=== PATIENT | male | born 1970 | race Caucasian/White ===

== ENCOUNTER 2017-07-13 13:46 | Emergency (ER) | payer SELFPAY ==
[~2017-07-13] VITALS: Ht 167.6 cm; Wt 129.3 kg
[2017-07-13] MEDS ORDERED: IBUP600 PO (14:46)
[2017-07-13] MEDS ORDERED: Norco 5-325 Ta1 EACH PO (14:46)
== END 2017-07-13 14:52 | disposition home or self-care (01) ==
LOC: ER 13:46
DX: M25.511 Pain in right shoulder (principal); E11.9 Type 2 diabetes mellitus without complications; I10 Essential (primary) hypertension; E78.5 Hyperlipidemia, unspecified; E03.9 Hypothyroidism, unspecified; F17.200 Nicotine dependence, unspecified, uncomplicated
CPT/HCPCS: 73030; 99283

== ENCOUNTER 2018-06-21 13:16 | Emergency (ER) | payer SELFPAY ==
[~2018-06-21] VITALS: Ht 165.1 cm; Wt 117.9 kg
[~2018-06-21 13:16] MED LIST: IBUP600 PO; Norco 5-325 Ta1 EACH PO
[2018-06-21] MEDS ORDERED: KETO10 PO (15:00)
[2018-06-21] MEDS ORDERED: HYDR1TAB94 PO (15:00)
[2018-06-21] MEDS ORDERED: CRUTCH4 XX (15:01)
== END 2018-06-21 15:21 | disposition home or self-care (01) ==
LOC: ER 13:16
DX: S93.401A Sprain of unspecified ligament of right ankle, initial encounter (principal); W01.0XXA Fall on same level from slipping, tripping and stumbling without subsequent striking against object, initial encounter; Z79.899 Other long term (current) drug therapy; E11.9 Type 2 diabetes mellitus without complications; I10 Essential (primary) hypertension; E78.5 Hyperlipidemia, unspecified; E03.9 Hypothyroidism, unspecified; Z87.891 Personal history of nicotine dependence
CPT/HCPCS: 29515; 73562-RT; 73610; 73630; 99283-25

== ENCOUNTER 2020-11-12 12:14 | Emergency (ER) | payer OTHER ==
[~2020-11-12] VITALS: Ht 167.6 cm; Wt 127.0 kg
[~2020-11-12 12:14] MED LIST changes: +CRUTCH4 XX; +HYDR1TAB94 PO; +KETO10 PO
[2020-11-12 13:08] LABS: BASOPHILS ABSOLUTE AUTO 0.02 K/mm3 (0.00-0.23); BASOPHILS PERCENT AUTO 0 % (0-2); EOSINOPHILS PERCENT AUTO 0 % (0-6); Hematocrit 45.1 % (37.0-53.0); IMMATURE GRAN ABSOLUTE AUTO 0.01 K/mm3 (0.00-0.10); IMMATURE GRAN PERCENT AUTO 0 % (0-1); LYMPHOCYTES ABSOLUTE AUTO 1.14 K/mm3 (0.84-5.20); LYMPHOCYTES PERCENT AUTO 17 % (21-46); MONOCYTES ABSOLUTE AUTO 0.21 K/mm3 (0.16-1.47); MONOCYTES PERCENT AUTO 3 % (4-13); Mean Corpuscular HGB 29.4 pg (26.0-34.0); Mean Corpuscular HGB Conc 33.3 g/dL (31.5-36.5); Mean Corpuscular Volume 88 fL (80-100); Mean Platelet Volume 10.5 fL (9.1-12.4); NEUTROPHILS ABSOLUTE AUTO 5.43 K/mm3 (1.96-9.15); NEUTROPHILS PERCENT AUTO 80 % (41-73); Platelet Count 168 K/mm3 (150-400); RDW Coefficient Variation 13.9 % (11.7-14.2); RDW Standard Deviation 45.2 fL (35.1-46.3); Red Blood Cell Count 5.11 M/mm3 (4.30-5.90); White Blood Cell Count 6.81 K/mm3 (4.00-11.30)
[2020-11-12 13:37] LABS: Alanine Aminotransfer (ALT/SGP 66 U/L (12-78); Albumin, Blood 3.2 g/dL (3.4-5.0); Albumin/Globulin Ratio 0.6 (0.8-1.8); Alk Phos 65 U/L (50-136); Anion Gap 8 mmol/L (6-16); Aspartate Aminotrans (AST/SGOT 62 U/L (12-37); Bilirubin, Total 0.3 mg/dL (0.1-1.0); Blood Urea Nitrogen 13 mg/dL (8-24); Bun/Creatinine Ratio 16.5 (12.0-20.0); CO2, Blood 24 mmol/L (21-32); Calcium, Blood 8.7 mg/dL (8.5-10.1); Chloride, Blood 99 mmol/L (98-108); Creatinine, Blood 0.79 mg/dL (0.60-1.20); Globulin, Blood 5.4 g/dL (2.2-4.0); Glomerular Filtration Rate >60 (60-); Glucose, Blood 267 mg/dL (70-99); Potassium, Blood 3.8 mmol/L (3.5-5.5); Sodium, Blood 131 mmol/L (136-145); Total Protein, Blood 8.6 g/dL (6.4-8.2); Troponin I <0.015 ng/mL (0.000-0.040)
== END 2020-11-12 14:30 | disposition home or self-care (01) ==
LOC: ER 12:14
PROVIDERS: Physician Assistant
DX: U07.1 COVID-19 (principal); E11.9 Type 2 diabetes mellitus without complications; I10 Essential (primary) hypertension; E78.5 Hyperlipidemia, unspecified; E03.9 Hypothyroidism, unspecified; Z87.891 Personal history of nicotine dependence
CPT/HCPCS: 36415; 71045; 80053; 83690; 83880; 84443; 84484; 85025; 93005; 93010; 96374; 96375; 99284-25; J1885; J2405; J7030

== ENCOUNTER 2020-11-15 18:48 | Inpatient (IN) | payer OTHER ==
[~2020-11-15] VITALS: Ht 167.6 cm; Wt 119.2 kg
[2020-11-15] MEDS ORDERED: ALKA-SELTZER P1 EA19 PO (19:22)
[2020-11-15 19:24] LABS: BASOPHILS ABSOLUTE AUTO 0.02 K/mm3 (0.00-0.23); BASOPHILS PERCENT AUTO 0 % (0-2); EOSINOPHILS PERCENT AUTO 0 % (0-6); Hematocrit 40.3 % (37.0-53.0); Hemoglobin 13.6 g/dL (13.5-17.5); IMMATURE GRAN ABSOLUTE AUTO 0.09 K/mm3 (0.00-0.10); IMMATURE GRAN PERCENT AUTO 1 % (0-1); LYMPHOCYTES ABSOLUTE AUTO 1.15 K/mm3 (0.84-5.20); LYMPHOCYTES PERCENT AUTO 10 % (21-46); MONOCYTES ABSOLUTE AUTO 0.21 K/mm3 (0.16-1.47); MONOCYTES PERCENT AUTO 2 % (4-13); Mean Corpuscular HGB 29.1 pg (26.0-34.0); Mean Corpuscular HGB Conc 33.7 g/dL (31.5-36.5); Mean Corpuscular Volume 86 fL (80-100); Mean Platelet Volume 10.3 fL (9.1-12.4); NEUTROPHILS ABSOLUTE AUTO 10.21 K/mm3 (1.96-9.15); NEUTROPHILS PERCENT AUTO 87 % (41-73); Platelet Count 316 K/mm3 (150-400); RDW Coefficient Variation 13.5 % (11.7-14.2); RDW Standard Deviation 42.5 fL (35.1-46.3); Red Blood Cell Count 4.68 M/mm3 (4.30-5.90); White Blood Cell Count 11.68 K/mm3 (4.00-11.30)
[2020-11-15 19:42] LABS: Alanine Aminotransfer (ALT/SGP 43 U/L (12-78); Albumin, Blood 2.4 g/dL (3.4-5.0); Albumin/Globulin Ratio 0.4 (0.8-1.8); Alk Phos 58 U/L (50-136); Anion Gap 6 mmol/L (6-16); Aspartate Aminotrans (AST/SGOT 43 U/L (12-37); Bilirubin, Total 0.3 mg/dL (0.1-1.0); Blood Urea Nitrogen 17 mg/dL (8-24); Bun/Creatinine Ratio 23.9 (12.0-20.0); CO2, Blood 31 mmol/L (21-32); Calcium, Blood 8.3 mg/dL (8.5-10.1); Chloride, Blood 97 mmol/L (98-108); Creatinine, Blood 0.71 mg/dL (0.60-1.20); Free Thyroxine 0.47 ng/dL (0.70-1.60); Globulin, Blood 5.5 g/dL (2.2-4.0); Glomerular Filtration Rate >60 (60-); Glucose, Blood 276 mg/dL (70-99); Potassium, Blood 3.9 mmol/L (3.5-5.5); Sodium, Blood 134 mmol/L (136-145); Total Protein, Blood 7.9 g/dL (6.4-8.2)
--- NOTE | 2020-11-15 21:01 | NUR ---
REPORT RECEIVED FROM PRIVATE WATCHMANLINWOOD SANCHEZ.
--- NOTE | 2020-11-15 21:30 | NUR ---
PT ARRIVED IN ICU ON STRETCHER, ON HIFLO N/C. RT SET UP AT 60ML, 60%. PT ABLE TO STAND, TURN, PIVOT TO BED, SOB NOTED WITH ACTIVITY.
--- NOTE | 2020-11-15 21:56 | NUR ---
SATS DECREASED 85%, CALLED RT- INCREASED FI02 TO 70% , 60 L.
--- NOTE | 2020-11-15 22:35 | NUR ---
ASSESS PT ATTEMPT TO GET OOB, TO VOID, ASSISTED ON GETTING UP TO BSC. PT SATS DECREASED TO 60% ON 80% INCREASED HF N/C TO 100%. PT RETURNED TO BED. CALLED RT, SATS 86% ON 100%. SATS RECOVERING SLOWLY. SATS RETURN TO 93% ON 100%. DECREASED FIO2 TO 85%. CONTINUE TO ASSESS PT. PT MADE AWARE HE WILL REMIAN BEDREST DUE TO SATS DECREASING WITH ACTIVITY.
--- NOTE | 2020-11-15 23:07 | NUR ---
PT'S UPDATED ON PT STATUS, DECREASED SATS, ON 60L, 90% HF NC INCREASED BP'S,. PT CONCERNED ABOUT THYROID, O2. WILL UPDATE .
--- NOTE | 2020-11-15 23:51 | NUR ---
PT ATTEMPT TO GET OOB. BED ALARM ON, SET IT OFF. SATS DECREASED, 88%. RT TO ROOM. FLOW INCREASED TO 70L. REMAINS ON 90%. DISCUSSED WITH PT PLACING A MAI TO DECREASE TO WANT TO GET OOB. PT REFUSED. BED ALARM ON. PT RESTING IN BED. BP INCREASED SEE VITALS- MD NOTIFIED.
--- NOTE | 2020-11-16 00:14 | NUR ---
NOTIFIED PT ATTEMPTING TO GET OOB, ATFER ASKED TO STAY IN BED SEVERAL TIMES. ? PT INCREASING CONFUSION. PT ALSO REQUIRING MORE 02, DECREASED SATS WITH ACTIVITY. ABG ORDERED. DISCUSSED MAI-PT REFUSED. PT CONTINUES WITH HTN- NEW ORDERES SEE HAILE. AWARE OF ELEVATED TSH, ORAL SYNTHROID ORDERED SEE CGARFERNY RN AWARE OF PT STATUS.
--- NOTE | 2020-11-16 00:24 | NUR ---
RT IN ROOM FOR ABG.
[2020-11-16 00:33] LABS: PCO2 Arterial 45.8 mmHg (35-45); PO2 Arterial 72.3 mmHg (80-100)
[2020-11-16 03:49] LABS: Anion Gap 6 mmol/L (6-16); Blood Urea Nitrogen 19 mg/dL (8-24); Bun/Creatinine Ratio 24.8 (12.0-20.0); CO2, Blood 32 mmol/L (21-32); Calcium, Blood 8.3 mg/dL (8.5-10.1); Chloride, Blood 94 mmol/L (98-108); Creatinine, Blood 0.77 mg/dL (0.60-1.20); Glomerular Filtration Rate >60 (60-); Glucose, Blood 381 mg/dL (70-99); Sodium, Blood 132 mmol/L (136-145)
--- NOTE | 2020-11-16 04:07 | NUR ---
ASSESS PT CONTINUES ON HF 60L/MIN, 80%, SOB WITH ANY ACTIVITY INCLUDING ASSISTING TURNING IN BED. BP IMPROVED-SEE FLOWSHEET. CONTINUE ASSESSMENT AND CARE.
--- NOTE | 2020-11-16 08:35 | NUR ---
ASSUMED CARE BEDSIDE REPORT FROM GREGOR PALUMBO. PT RESTING IN BED. A&OX 3. PT SPEAKS IN ONE-TWO WORD REPLIES. STATES INCREASED SOB c MINIMAL EXERTION OR SPEECH. WITHDRAWN, FLAT AFFECT. SHALLOW RESP. LUNGS DIMINISHED THROUGHOUT. HIGH FLOW, 70L, 90%. DRY COUGH. PT P/W/D. O2 SATS MID 90'S. NSR, RATE 60'S. BP STABLE. PT REFUSES BREAKFAST D/T SOB. ABLE TO DRINK AND TAKE PO MEDS. O2 SATS DECREASE TO 90% WHEN PT USES URINAL. REFUSES MAI. BED ALARM ON FOR SAFETY. CALL LIGHT IN REACH. WILL CONTINUE TO MONITOR.
--- NOTE | 2020-11-16 11:14 | NUR ---
PRONE O2 SATS TRENDING TO LOW 90'S, HIGH 80'S. ASSISTED PT TO PRONE POSITION. TOLERATED WELL. ABLE TO ROLL c MODERATE ASSISTANCE. O2 SATS INCREASED TO MID 90'S. DENIES OTHER NEEDS.
--- NOTE | 2020-11-16 17:35 | NUR ---
SHIFT SUMMARY PT REMAINS ON AIRVO, 70L/100%. PT ON BIPAP, 14/7/100% FOR SHORT PERIOD OF TIME. NO IMPROVEMENT ON O2 SATS DURING THIS TIME, PLACED BACK ON AIRVO. PRONED FOR APPROX 3 HOURS EARLIER IN SHIFT. WILL ENCOURAGE PRONING AFTER DINNER. LUNGS CONTINUE TO BE DIMINISHED THROUGHOUT. PT HAD ONE COUGHING EPISODE c RUST COLORED SPUTUM. PT SPEAKING IN LONGER SENTANCES THAN THIS AM BUT CONTINUED TO DESAT c ANY ACTIVITY OR SPEECH. O2 SATS DECREASED TO 79% WHEN PT ATTEMPTED TO EAT DINNER. REFUSED BREAKFAST AND LUNCH D/T SOB. DIETARY CONSULT ORDERED. BP STABLE. HR 50-60'S, SR. CHEMBGS 300'S. WILL CONTINUE TO MONITOR UNTIL REPORT TO ONCOMING NURSE.
--- NOTE | 2020-11-16 19:34 | NUR ---
REPORT RECEIVED-CARE ASSUMED. PT IN PRONE POSITION, WATCHING TV, ON HF-NC FI02 100%, 70L.MIN FLOW. PT DESATS WITH ANY MOVEMENT. NO MAI DUE TO PT REFUSAL. VOIDS IN URNIAL, DESATS WITH VOIDING INTO 80'S. PIV X 2, S.L. POWER GLIDE JHON- S.L. CONTINUE ASSESSMENT AND CARE.
--- NOTE | 2020-11-16 20:06 | NUR ---
DECREASED SATS 86%, RT AT ROOM. INCREASED FLOW TO 80L
--- NOTE | 2020-11-16 20:16 | NUR ---
PT CONTINUE SWITH DECREASED SATS-ON 100% HF NC IN PRONE POSITION-INSURANCE CLAIMS ANALYST,RT AWARE. -DR. BULLOCK NOTIFIED. REQUEST PULM CONSULT. DR. THOMAS TO ASSESS PT.
--- NOTE | 2020-11-16 20:45 | NUR ---
DR. BULLOCK AT BEDSIDE. RT TO GIVE BREATHING RX. PT NOW ON BIPAP. CONTINUE CARE.
--- NOTE | 2020-11-16 22:08 | NUR ---
ASSESS PT REMAINS IN PRONE POSITION, PT ABLE TO WOODARD, AND AJUST NEEDED, OFFERED REPOSITION, PT RESTING ON 100% BIPAP, OK WITH POSITION. CONTINUE ASSESSMENT AND CARE. VITALS NOTED ON FLOWSHEET.
--- NOTE | 2020-11-16 23:38 | NUR ---
ASSESS 2315 RT TO ROOM, CHARGE NURSE NOTIFIED. HR JACKI LOW 50'S. SATS 86%. RT ATTEMP HI FLOW 100% 75 L/MIN , THEN BIPAP, DISCUSSED WITH PT TO PRONE FOR DECREASED SATS. PT REFUSED AT THIS TIME. PT BLEW NOSE SEVERAL TIMES WITH CLEAR OUTPUT. DISCUSSED INTUBATION. MD NOTIFIED OF SATS, HR. CHANGED POSITION OF SAT PROBE, NO CHANGE IN SAT. PT BACK ON BIPAP 100% 10/04. HOB ELEVATED. SATS 91%, BUT HR REMAINS 50.
--- NOTE | 2020-11-16 23:48 | NUR ---
DR. BULLOCK AT BEDSIDE.
--- NOTE | 2020-11-17 00:03 | NUR ---
ASSESS BS REMAIN DECREASED T/O, STRONG NON-PRODUCTIVE COUGH. PT CHANGED TO PRONE POSITION. VITALS NOTED IN FLOWSHEET. ON BIPAP 100% 15/10, BUR 15. HR: SB 48-52. STRIP PRINTED AND PLACED IN PAPER CHART. DR. BULLOCK UPDATED ON PT STATUS AT BEDSIDE-NO NEW ORDERS AT THIS TIME. CONTINUE ASSESSMENT AND CARE.
[2020-11-17 03:35] LABS: Hematocrit 37.3 % (37.0-53.0); Hemoglobin 12.4 g/dL (13.5-17.5); Mean Corpuscular HGB 29.2 pg (26.0-34.0); Mean Corpuscular HGB Conc 33.2 g/dL (31.5-36.5); Mean Corpuscular Volume 88 fL (80-100); Mean Platelet Volume 10.3 fL (9.1-12.4); Platelet Count 409 K/mm3 (150-400); RDW Coefficient Variation 13.7 % (11.7-14.2); RDW Standard Deviation 44.4 fL (35.1-46.3); Red Blood Cell Count 4.25 M/mm3 (4.30-5.90); White Blood Cell Count 12.66 K/mm3 (4.00-11.30)
[2020-11-17 03:56] LABS: Alanine Aminotransfer (ALT/SGP 44 U/L (12-78); Albumin, Blood 2.1 g/dL (3.4-5.0); Albumin/Globulin Ratio 0.4 (0.8-1.8); Alk Phos 53 U/L (50-136); Anion Gap 4 mmol/L (6-16); Aspartate Aminotrans (AST/SGOT 26 U/L (12-37); Bilirubin, Total 0.2 mg/dL (0.1-1.0); Blood Urea Nitrogen 30 mg/dL (8-24); Bun/Creatinine Ratio 33.2 (12.0-20.0); CO2, Blood 34 mmol/L (21-32); Calcium, Blood 8.5 mg/dL (8.5-10.1); Chloride, Blood 94 mmol/L (98-108); Globulin, Blood 5.1 g/dL (2.2-4.0); Glomerular Filtration Rate >60 (60-); Glucose, Blood 406 mg/dL (70-99); Potassium, Blood 4.1 mmol/L (3.5-5.5); Sodium, Blood 132 mmol/L (136-145); Total Protein, Blood 7.2 g/dL (6.4-8.2)
--- NOTE | 2020-11-17 04:16 | NUR ---
ASSESS PT REMAINS ON BIPAP IN PRONE POSITION, PT ABLE TO MOVE SELF-ASSIST WITH SOME PILLOW SUPPORT. LABS SENT. PAIN MEDS PER MAR, FOR C/O BACK PAIN. SB RATE 45-50 ON MONITOR. VITALS NOTED. CONTINUE ASSESSMENT AND CARE.
--- NOTE | 2020-11-17 07:50 | NUR ---
Received report from Lacey PALUMBO. Patient supine and just repositions self to supine sitting up. He is now on AirVo 70L/100% and sats 83-90%. He is alert and oriented and is able to communicate his needs. He tolerated PO med with water. He has PowerGlide 18/10 JHON dressing intact and site WNL and is flushed and SL. he also has two IV's LH20ga and Left chest 22ga, vbothe WNL and flushed and SL. He is indepentent with positioning and requires minimal assist with O2 apparatus change. He prones self. He uses urinal appropriately. He dieies any back pain currently.
--- NOTE | 2020-11-17 11:30 | NUR ---
Patient remains on AirVo 70L/100% and sats have been as high as 98% and as low as 70%. He has been very brittle with exertion. Dr Boudreaux has been in room and discussed with him intubation and he has agreed to having it done. Patient stated he spoke with his spouse and updated her. I will call post intubation to give her update. He has 300 ml output of urine via urinal. Repositioned higher in bed and stated help him breathing. he tolerated small amounts of breakfast but mostly liquids this am. Patient denies any current needs.
--- NOTE | 2020-11-17 11:35 | NUR ---
Patient intubated using Propofol, succinylcholine 100 mg, 4mg Ativan and 100 mcg Fentanyl. He was started on 50 mcg/kg/min incresed to 60 and now down to 45 mcg/kg/min. He has 8.0 ET and 26 cm at teeth with vent settings of AC 18, TV 450, PEEP 15, Fio2 100%. Spoke with and gave update. Place OG and clamped as well as 16 Fr. Temp Pearl patent clear yellow urine. Just started NS bolus for hypotention
[2020-11-17 11:45] LABS: PCO2 Arterial 46.2 mmHg (35-45); PO2 Arterial 89.7 mmHg (80-100); pH Blood Arterial 7.48 (7.35-7.45)
--- NOTE | 2020-11-17 13:30 | NUR ---
Took patient to CT of chest per order and he did well. Vent setting changes are AC 18, TV 450, PEEP 15, FiO2 75% and sats >93>. Propofol remaisn at 45 mcg/kg/hr and will start LR at 150 ml/hr after NS bolus is done.
--- NOTE | 2020-11-17 15:33 | NUR ---
Repositioned patient and started LR at 150 ml/hr. He remains at 75% FiO2 and sats 93% and resting well. Going to place PICC line. VSS, See EMR. No changes to Propofol.
--- NOTE | 2020-11-17 18:24 | NUR ---
Placed PICC line in AARON. Started tube feed vital high protien at 25 ml/hr and 30 ml/Q4 water flushes. Changed linen and placed chucks and green sheet for moving patient. Reduced FiO2 to 55% while in room and sats 92%. Repositioned pateint to left side. Vent settings Ac 18, TV 450, PEEP 15, FiO2 55%. Propofol at 45 mcg/kg/min and LR at 150 ml/hr. He has 900 yellow urine output.
--- NOTE | 2020-11-17 19:23 | NUR ---
CARE ASSUMED: REPORT RECEIVED-PT ON VENT A/C 18/TV 450/15/55%. SEDATED ON PROPOFOL INFUSING @ 45.TEMP MAI IN PLACE-DRAINING CL/YELLOW. TF STARTED TODAY CURRENTLY RUNNING @ 25 ML/HR. CONTINUE ASSESSMENT AND CARE.
--- NOTE | 2020-11-18 | NUR ---
ASSESS PT REMAINS ON VENT, NO CHANGES, VITALS STABLE. CONTINUE CARE.
--- NOTE | 2020-11-18 02:04 | NUR ---
WEAN SEDATION ATTEMPT TO WEAN PROPOFOL, FROM 45 TO 35 MCG/KG/MIN. PT BEGAN TO BITE ET-TUBE, WOODARD, COUGHING ON VENT. RETURN PROPOFOL TO 45MCG/KG/MIN. CONTINUE ASSESSMENT AND CARE.
--- NOTE | 2020-11-18 03:03 | NUR ---
RT NOTIFIED-PT 02 SATS 88-89%. BS: REMIAN UNCHANGED-DECREASED BILAT-EQUAL. SXN: SMALL AMTS CLEAR SECREATIONS WITH STRONG COUGH. CONTINUE ASSESSMENT AND CARE.
--- NOTE | 2020-11-18 04:34 | NUR ---
ASSESS PT ATTEMPT TO GET UP, PULLING AT RESTRAINTS, FLAILING HEAD AND WOODARD. INCREASED PROPOFOL TO 55 MCG/KG/MIN. BS REMIAN EQUAL BILAT. SXN: SMALL AMT CLEAR SECREATIONS, STRONG COUGH. SATS 89%, INCREASED FI02 TO 60%. REPOSITION PT. CONTINUE ASSESSMENT AND CARE.
[2020-11-18 05:00] LABS: BASOPHILS ABSOLUTE AUTO 0.02 K/mm3 (0.00-0.23); BASOPHILS PERCENT AUTO 0 % (0-2); EOSINOPHILS PERCENT AUTO 0 % (0-6); Hematocrit 38.9 % (37.0-53.0); Hemoglobin 12.7 g/dL (13.5-17.5); IMMATURE GRAN ABSOLUTE AUTO 0.16 K/mm3 (0.00-0.10); IMMATURE GRAN PERCENT AUTO 1 % (0-1); LYMPHOCYTES ABSOLUTE AUTO 1.03 K/mm3 (0.84-5.20); LYMPHOCYTES PERCENT AUTO 9 % (21-46); MONOCYTES ABSOLUTE AUTO 0.45 K/mm3 (0.16-1.47); MONOCYTES PERCENT AUTO 4 % (4-13); Mean Corpuscular HGB 29.2 pg (26.0-34.0); Mean Corpuscular HGB Conc 32.6 g/dL (31.5-36.5); Mean Corpuscular Volume 89 fL (80-100); Mean Platelet Volume 10.4 fL (9.1-12.4); NEUTROPHILS ABSOLUTE AUTO 9.72 K/mm3 (1.96-9.15); NEUTROPHILS PERCENT AUTO 85 % (41-73); Platelet Count 440 K/mm3 (150-400); RDW Coefficient Variation 13.8 % (11.7-14.2); Red Blood Cell Count 4.35 M/mm3 (4.30-5.90); White Blood Cell Count 11.38 K/mm3 (4.00-11.30)
[2020-11-18 05:14] LABS: PCO2 Arterial 45.9 mmHg (35-45); PO2 Arterial 56.6 mmHg (80-100); pH Blood Arterial 7.47 (7.35-7.45)
[2020-11-18 05:18] LABS: Anion Gap 6 mmol/L (6-16); Blood Urea Nitrogen 36 mg/dL (8-24); CO2, Blood 32 mmol/L (21-32); Calcium, Blood 8.8 mg/dL (8.5-10.1); Chloride, Blood 96 mmol/L (98-108); Creatinine, Blood 1.03 mg/dL (0.60-1.20); Glomerular Filtration Rate >60 (60-); Glucose, Blood 391 mg/dL (70-99); Magnesium, Blood 2.6 mg/dL (1.6-2.4); Phosphorus, Blood 4.2 mg/dL (2.5-4.9); Potassium, Blood 4.1 mmol/L (3.5-5.5); Sodium, Blood 134 mmol/L (136-145)
--- NOTE | 2020-11-18 05:36 | NUR ---
PA02 56.6 ON ABG-T/O NIGHT PT HAS REQUIRED INCREASE IN FIO2 NOW ON 70%. INCREASED TO 80% AFTER ABG-RT AND NARROW FABRIC CALENDERER AWARE AWARE.
--- NOTE | 2020-11-18 06:18 | NUR ---
ASSESS-END OF SHIFT DISCUSSED WITH LAB HEAD-PAO2 RESULTS (SEE ABS)-INCREASED FIO2 TO 100%. VENT SETTINGS: A/C V/C 18/450/15/100%. PROPOFOL @ 50 MCG/KG/MIN, LR @ 150 ML/HR BOTH INFUSING INTO AARON PICC. OG WITH TF @ 25 - NOW INCREASED TO 35 ML/HR - O RISIDUAL. MAI TO DRAIN-YELLOW OUTPUT WITH SEDIMENT NOTED, 350ML OUT OVERNIGHT. CONTINUE ASSESSMENTS AND CARE TILL REPORT OFF TO ONCOMING SHIFT RN.
--- NOTE | 2020-11-18 07:48 | NUR ---
Received report from Lacey Weston. Patient is intubated and sedated. He has 8.0 ET and 24 cm at teeth. Vent settings are AC 17 TV 450, PEEP 15 and have reduced while in room FiO2 65% and sats 96%. He has PowerGlide in JHON dressing intact and site WNL's and is flushed and SL'd. He also has 20ga IV in LH also flushed and SL'd. He has PICC line to AARON dressing intact and site WNL's and is infusing Propofol 50 mcg/kg/min, LR 150 ml/hr. He has OG in place infusing VHP at goal rate of 40 ml/hr and 30 ml/Q4 water flushes and no residuals . Patient has 16Fr temp clayton with clear yellow urine and is afebrile. Oral care, cath care and repositioning done while in room. Med given through OG.
--- NOTE | 2020-11-18 09:45 | NUR ---
Patient is resting and is alert enough to point and make hand jestures to communicate. His Fio2 at 65% and just reduced PEEP to 12. Increased Propofol to 60 mcg/kg/min, LR remains at 150 ml/hr. gave Dr Boudreaux update.
--- NOTE | 2020-11-18 12:08 | NUR ---
Repositioned patient. No changes to vent settings and remains at 18/450/12/65%.LR reduced to 10 ml/hr per Dr Boudreaux and Propofol is at 60 mcg/kg/min. TF remaisn at goal rate of 40 ml of VHP.
--- NOTE | 2020-11-18 13:41 | NUR ---
No significant changes with patient, LR at 10 ml/hr, Propofol 60 mcg/kg/min. Vent settings 16/450/12/60 and sats 94%. Emptied 1200 gren/yellow urine. MAEW. Responds to verbal and painful stimuli. Dr Boudreaux was in room assessing.
--- NOTE | 2020-11-18 17:51 | NUR ---
Patient was repositioned and chucks changed. He has medium loose stool. He put out another 700 green/yellow urine with sediment. Vent settings 18/450.12.65% and sats >90%. Propofol reduced to 50 and LR running at 10 ml/hr. he was alert enough to knod yes and no. Medicated with Fentanyl per MAR. VSS, See EMR. He has moderate secretions in ET when on right side. Changed TF out.
--- NOTE | 2020-11-18 19:00 | NUR ---
ASSUMED CARE ASSUMED CARE OF PATIENT. REMAINS INTUBATED- AC 18, TV 450, PEEP 12, FIO2 60%. SEDATED WITH PROPOFOL AT 50MCG/KG/MIN AT THIS TIME. MOVES ALL EXTREMITIES AND MOVES SELF IN BED. RESTLESS AT TIMES. FOLLOWS SIMPLE COMMANDS TO SQUEEZE HANDS AND WIGGLE TOES. NODS HEAD YES/NO SEEMINGLY APPROPRIATELY. BILATERAL SOFT WRIST RESTRAINTS IN PLACE TO PREVENT SELF-EXTUBATION. MONITOR SHOWS NSR, RATE 60s. BP STABLE. OG WITH VITAL HIGH PROTEIN AT GOAL RATE OF 40CC/HR. MAI PATENT AND DRAINING CLEAR YELLOW URINE. SEE SHIFT ASSESSMENT FOR FULL ASSESSMENT.
[2020-11-19 04:44] LABS: BASOPHILS ABSOLUTE AUTO 0.01 K/mm3 (0.00-0.23); BASOPHILS PERCENT AUTO 0 % (0-2); EOSINOPHILS ABSOLUTE AUTO 0.03 K/mm3 (0.00-0.68); EOSINOPHILS PERCENT AUTO 0 % (0-6); Hematocrit 37.5 % (37.0-53.0); Hemoglobin 12.4 g/dL (13.5-17.5); IMMATURE GRAN ABSOLUTE AUTO 0.22 K/mm3 (0.00-0.10); IMMATURE GRAN PERCENT AUTO 2 % (0-1); LYMPHOCYTES ABSOLUTE AUTO 1.56 K/mm3 (0.84-5.20); LYMPHOCYTES PERCENT AUTO 16 % (21-46); MONOCYTES ABSOLUTE AUTO 0.39 K/mm3 (0.16-1.47); MONOCYTES PERCENT AUTO 4 % (4-13); Mean Corpuscular HGB 29.7 pg (26.0-34.0); Mean Corpuscular HGB Conc 33.1 g/dL (31.5-36.5); Mean Corpuscular Volume 90 fL (80-100); Mean Platelet Volume 10.4 fL (9.1-12.4); NEUTROPHILS ABSOLUTE AUTO 7.56 K/mm3 (1.96-9.15); NEUTROPHILS PERCENT AUTO 77 % (41-73); Platelet Count 404 K/mm3 (150-400); RDW Coefficient Variation 13.6 % (11.7-14.2); RDW Standard Deviation 44.8 fL (35.1-46.3); Red Blood Cell Count 4.18 M/mm3 (4.30-5.90); White Blood Cell Count 9.77 K/mm3 (4.00-11.30)
[2020-11-19 05:03] LABS: Alanine Aminotransfer (ALT/SGP 39 U/L (12-78); Albumin/Globulin Ratio 0.4 (0.8-1.8); Alk Phos 54 U/L (50-136); Anion Gap 5 mmol/L (6-16); Aspartate Aminotrans (AST/SGOT 26 U/L (12-37); Bilirubin, Total 0.3 mg/dL (0.1-1.0); Blood Urea Nitrogen 26 mg/dL (8-24); Bun/Creatinine Ratio 26.3 (12.0-20.0); CO2, Blood 32 mmol/L (21-32); Chloride, Blood 100 mmol/L (98-108); Creatinine, Blood 0.99 mg/dL (0.60-1.20); Globulin, Blood 4.6 g/dL (2.2-4.0); Glomerular Filtration Rate >60 (60-); Glucose, Blood 326 mg/dL (70-99); Potassium, Blood 3.6 mmol/L (3.5-5.5); Sodium, Blood 137 mmol/L (136-145); Total Protein, Blood 6.6 g/dL (6.4-8.2)
--- NOTE | 2020-11-19 06:18 | NUR ---
SHIFT SUMMARY NO ACUTE CHANGES. REMAINS INTUBATED WITH SAME VENT SETTINGS EXCEPT FIO2 NOW 65%. SEDATED WITH PROPOFOL BETWEEN 50-60MCG/KG/MIN- NOW INFUSING AT 60MCG/KG/MIN. ALSO MEDICATED WITH ATIVAN 2MG IV X 4 DOSES AND FENTANYL 50MCG IV X 5 DOSES AN ADJUNCT TO SEDATION. PT INTERMITTENTLY BECOMES AGITATED AND RESTLESS, THROWING LEGS OFF OF SIDE OF BED AND REACHING FOR ETT. BILATERAL SOFT WRIST RESTRAINTS REMAIN IN PLACE. VSS T/O NOC. OG WITH VITAL HIGH PROTEIN AT GOAL RATE OF 40CC/HR. OG RESIDUALS <10CC. MAI PATENT AND DRAINING. AARON PICC PATENT. JHON HDZ GLIDE PATENT. WILL REPORT TO ONCOMING RN WHEN AVAILABLE.
--- NOTE | 2020-11-19 07:15 | NUR ---
Assumed care of pt at 0700. Bedside report received from Sabine PALUMBO. Pt sedated with propofol at 60 mcg/kg/min. Reportedly requires frequent IV push ativan and fentanyl as pt becomes restless and scoots down in bed with intent to reach for ETT. At initial assessment, pt is responsive to painful stimulus. Gag and cough present. Compliant with ventilator. 8.0 cm ETT is 26 cm JOSE. Ventilator settings AC 18/450/12/65%. SpO2 90% or greater. Moderate amount of thin pink sputum aspirated from ETT. Lungs clear t/o on auscultation with diminished bases. TF with feeds and flushes per orders. 0 mL residual measured. BT present in all quadrants. Pearl catheter draining dark yellow/green urine. Catheter secured to bed patent and draining. PICC line and PG present. SR per monitor, BP stable.
--- NOTE | 2020-11-19 08:30 | NUR ---
Pt required IV push ativan and fentanyl as he was chewing on ETT and performing full-body repositioning in bed.
--- NOTE | 2020-11-19 10:30 | NUR ---
Discussed pt's agitation with Dr Boudreaux. Orders given for fentanyl drip.
--- NOTE | 2020-11-19 12:30 | NUR ---
Pt again required IV fentanyl and ativan as he was biting down on ETT and impairing ventilaton. Discussed agitation with Dr Boudreaux. Orders given for precedex drip.
--- NOTE | 2020-11-19 18:14 | NUR ---
SUMMARY Sedation is stable at 50 mcg/kg/min propofol, 0.2 mcg/kg/hr precedex, and 25 mcg/hr fentanyl. Gag and cough present. Responsive to painful stimulus. Sedation interruption performed earlier today, duration 30 minutes, pt follows commands and remained compliant with ventilator. Ventilator settings AC 18/450/12/50%. SpO2 90% or greater. SR per monitor. Tolerating TF well. 0 mL residual measured this shift. Pearl catheter had excellent urine output. Will continue to closely monitor until care handoff and bedside report with oncoming RN.
--- NOTE | 2020-11-19 19:50 | NUR ---
ASSUMED CARE ASSUMED CARE OF PATIENT AT 1900. REMAINS INTUBATED- AC 18, TV 450, PEEP 12, FIO2 50%. SEDATED WITH PROPOFOL AT 50MCG/KG/MIN, PRECEDEX AT 0.2MCG/KG/HR, AND FENTANYL 25MCG/HR AT THIS TIME. APPEARS RESTLESS AND AGITATED AT THIS TIME. MEDICATED WITH ATIVAN 2MG IV. BILATERAL SOFT WRIST RESTRAINTS IN PLACE TO PREVENT SELF-EXTUBATION. NOT FOLLOWING ANY COMMANDS AT THIS TIME. MONITOR SHOWS NSR, RATE 58-60s. BP STABLE. OG WITH VITAL HIGH PROTEIN AT GOAL RATE OF 25CC/HR. MAI PATENT AND DRAINING DARK YELLOW URINE WITH SEDIMENT. JHON PG AND AARON PICC NOTED. SEE SHIFT ASSESSMENT FOR FULL ASSESSMENT.
[2020-11-20 03:44] LABS: BASOPHILS ABSOLUTE AUTO 0.02 K/mm3 (0.00-0.23); BASOPHILS PERCENT AUTO 0 % (0-2); EOSINOPHILS ABSOLUTE AUTO 0.16 K/mm3 (0.00-0.68); EOSINOPHILS PERCENT AUTO 2 % (0-6); Hematocrit 36.5 % (37.0-53.0); Hemoglobin 12.1 g/dL (13.5-17.5); IMMATURE GRAN ABSOLUTE AUTO 0.17 K/mm3 (0.00-0.10); IMMATURE GRAN PERCENT AUTO 2 % (0-1); LYMPHOCYTES ABSOLUTE AUTO 1.88 K/mm3 (0.84-5.20); LYMPHOCYTES PERCENT AUTO 18 % (21-46); MONOCYTES ABSOLUTE AUTO 0.54 K/mm3 (0.16-1.47); MONOCYTES PERCENT AUTO 5 % (4-13); Mean Corpuscular HGB Conc 33.2 g/dL (31.5-36.5); Mean Corpuscular Volume 90 fL (80-100); Mean Platelet Volume 9.8 fL (9.1-12.4); NEUTROPHILS ABSOLUTE AUTO 7.66 K/mm3 (1.96-9.15); NEUTROPHILS PERCENT AUTO 74 % (41-73); Platelet Count 373 K/mm3 (150-400); RDW Coefficient Variation 13.4 % (11.7-14.2); RDW Standard Deviation 44.6 fL (35.1-46.3); Red Blood Cell Count 4.04 M/mm3 (4.30-5.90); White Blood Cell Count 10.43 K/mm3 (4.00-11.30)
[2020-11-20 04:00] LABS: Albumin, Blood 1.9 g/dL (3.4-5.0); Anion Gap 3 mmol/L (6-16); Blood Urea Nitrogen 15 mg/dL (8-24); Bun/Creatinine Ratio 17.4 (12.0-20.0); CO2, Blood 31 mmol/L (21-32); Calcium, Blood 7.7 mg/dL (8.5-10.1); Chloride, Blood 102 mmol/L (98-108); Creatinine, Blood 0.86 mg/dL (0.60-1.20); Glomerular Filtration Rate >60 (60-); Glucose, Blood 275 mg/dL (70-99); Phosphorus, Blood 2.7 mg/dL (2.5-4.9); Sodium, Blood 136 mmol/L (136-145)
--- NOTE | 2020-11-20 06:31 | NUR ---
SHIFT SUMMARY NO ACUTE CHANGES. REMAINS INTUBATED- FIO2 NOW 60%. SEDATED WITH PROPOFOL AT 50MCG/KG/MIN, PRECEDEX AT 0.3MCG/KG/HR, AND FENTANYL AT 25MCG/HR. ALSO MEDICATED WITH ATIVAN 2MG IV X 3 DOSES AN ADJUNCT TO SEDATION. ATTEMPTS TO TITRATE SEDATION DOWN HAVE BEEN UNSUCCESSFUL WITH PT BECOMING INCREASINGLY AGITATED AND RESTLESS AND WITH INCREASED COUGHING NOTED. PT REACHES FOR ETT WHEN RESTRAINTS LOOSENED. BILATERAL SOFT WRIST RESTRAINTS IN PLACE. FOLLOWED SIMPLE COMMANDS WHEN SHORT SEDATION VACATION DONE. MOVES SELF IN BED AT TIMES. OG WITH VITAL HIGH PROTEIN AT GOAL RATE OF 25CC/HR. RESIDUALS WNL. MAI PATENT AND DRAINING TO GRAVITY- YELLOWISH- GREEN URINE WITH SEDIMENT. JHON POWER GLIDE PATENT. AARON PICC LINE PATENT. VSS. WILL REPORT TO ONCOMING RN WHEN AVAILABLE.
--- NOTE | 2020-11-20 07:15 | NUR ---
Assumed care of pt at 0700. Report received from Sabine PALUMBO. Pt sedated with propofol at 50 mcg/kg/min, precedex 0.3 mcg/kg/hr, and fentanyl at 25 mcg/hr. Responsive to painful stimlulus. Gag and cough present. Ventilator settings ACVC 18/450/12/60%. SpO2 90% or greater. Lungs coarse t/o. OG tube with feeds and flushes per orders. 60 mL resiudal measured. Pearl catheter secured to bed, patent and draining dark, yellow urine.
--- NOTE | 2020-11-20 16:00 | NUR ---
Sedation interruption performed with propofol off, precedex at 0.4 mcg/kg/hr, and fentanyl at 25 mcg/hr. Pt's spouse at bedside. Pt able to nod head yes/no to answer questions. Able to follow commands.
--- NOTE | 2020-11-20 18:18 | NUR ---
SUMMARY No acute changes t/o shift. Propofol at 50 mcg/kg/min. Precedex at 0.4 mcg/kg/hr. Fentanyl at 25 mcg/min. Responsive to painful stimulus. Compliant with ventilator. Settings ACVC+ 18/450/12/50%. SpO2 90% or greater. Lungs initially coarse t/o but are now clear t/o. Intially 60 mL residual from OG tube, however on subsequent rechecks, 0 mL residual measured. Excellent urine output. Will continue to closely monitor until care handoff and bedside report with oncoming RN.
--- NOTE | 2020-11-20 20:00 | NUR ---
ASSUMED PT CARE REPORT FROM EMERSON MCMAHAN RN AT 1915, ASSUMED PT CARE. PT INTUBATED AND SEDATED. BILATERAL SOFT WRIST RESTRAINTS SECURE. PT HAS PICC LINE TO [facility], SITE WNL, DRESSING C/D/I. POWER GLIDE TO [facility], SITE WNL, DRESSING C/D/I. PT HAS NS INF @ 10ML/HR, PROPOFOL INF @ 45MCG/KG/MIN (DECREASED FROM 50MCG), PRECEDEX INF @ 0.4MCG/KG/HR, FENTANYL INF @ 25MCG/HR. PT COMFORTABLE. EXT FLOATED ON PILLOWS. OG TUBE SECURE WITH VHP INF @ GOAL, 25ML/HR WITH Q4HR 30ML H20 FLUSH. RESIDUAL AT THIS TIME 20ML, REINSTILLED. ABD SOFT, SOMEWHAT DISTENDED, BOWEL SOUNDS ACTIVE. TEMP MAI DRAINING DARK YELLOW/GREEN URINE. PT LUNG SOUNDS COARSE, FREQUENT COUGH, SPUTUM THICK AND YELLOW. VENT SETTINGS AC 18/450/12/50%, SATS >90%. BP STABLE. HR NSR 60'S. PT CURRENTLY AFEBRILE. SEE FULL SHIFT ASSESSMENT.
[2020-11-21 04:41] LABS: BASOPHILS ABSOLUTE AUTO 0.02 K/mm3 (0.00-0.23); BASOPHILS PERCENT AUTO 0 % (0-2); EOSINOPHILS PERCENT AUTO 2 % (0-6); Hematocrit 36.4 % (37.0-53.0); IMMATURE GRAN ABSOLUTE AUTO 0.19 K/mm3 (0.00-0.10); IMMATURE GRAN PERCENT AUTO 2 % (0-1); LYMPHOCYTES ABSOLUTE AUTO 1.79 K/mm3 (0.84-5.20); LYMPHOCYTES PERCENT AUTO 17 % (21-46); MONOCYTES ABSOLUTE AUTO 0.52 K/mm3 (0.16-1.47); MONOCYTES PERCENT AUTO 5 % (4-13); Mean Corpuscular HGB 29.4 pg (26.0-34.0); Mean Corpuscular Volume 89 fL (80-100); Mean Platelet Volume 10.2 fL (9.1-12.4); NEUTROPHILS ABSOLUTE AUTO 7.93 K/mm3 (1.96-9.15); NEUTROPHILS PERCENT AUTO 74 % (41-73); Platelet Count 343 K/mm3 (150-400); RDW Coefficient Variation 13.5 % (11.7-14.2); RDW Standard Deviation 44.3 fL (35.1-46.3); Red Blood Cell Count 4.08 M/mm3 (4.30-5.90); White Blood Cell Count 10.65 K/mm3 (4.00-11.30)
[2020-11-21 04:55] LABS: Albumin, Blood 1.9 g/dL (3.4-5.0); Anion Gap 3 mmol/L (6-16); Blood Urea Nitrogen 14 mg/dL (8-24); Bun/Creatinine Ratio 21.3 (12.0-20.0); CO2, Blood 29 mmol/L (21-32); Chloride, Blood 103 mmol/L (98-108); Creatinine, Blood 0.66 mg/dL (0.60-1.20); Glomerular Filtration Rate >60 (60-); Glucose, Blood 267 mg/dL (70-99); Phosphorus, Blood 2.2 mg/dL (2.5-4.9); Potassium, Blood 4.1 mmol/L (3.5-5.5); Sodium, Blood 135 mmol/L (136-145)
--- NOTE | 2020-11-21 06:24 | NUR ---
SHIFT SUMMARY PT REMAINS INTUBATED AND SEDATED. ATTEMPTED SEDATION VACATION THIS AM, DID NOT GO WELL. PT BECAME ANXIOUS, UNABLE TO CALM, GAGGING AND CHOKING ON ET TUBE, DENIED PAIN BUT SHOOK HIS HEAD ALL AROUND. PT HAS PICC TO AARON WITH FENTANYL INF @ 25MCG/HR, PROPOFOL INF @ 40MCG/KG/MIN, PRECEDEX INF @ 0.4MCG/KG/HR. POWER GLIDE TO LEFT UPPER ARM, HEP LOCK, SITE WNL. SKIN MOIST AND PALE/PINK. PT SR ON MONITOR, BPS HAVE BEEN REGULAR. PT STILL INTUBATED AND TOLERATING VENT SETTINGS AC 18/450/12/50, SATS >90%. MAI DRAINING. BILATERAL SOFT WRIST RESTARAINTS SECURE. PT HAS TUBE FEEDS INFUSING AT GOAL (25ML/HR), RESIDUALS WNL. WILL REPORT TO ONCOMING SHIFT.
--- NOTE | 2020-11-21 07:15 | NUR ---
Assumed care of pt at 0700. Report received from Barrett PALUMBO. Pt sedated with propofol at 40 mcg/kg/min, precedex 0.4 mcg/kg/hr, fentanyl 25 mcg/min. Responsive to painful stimulus. Moves all extremities. Cough and gag present. Ventilator settings ACVC+ 18/450/12/50%. SpO2 90% or greater. Lungs clear t/o. TF with feed and flushes per orders. 10 mL residual measured. Pearl catheter in place patent and draining.
--- NOTE | 2020-11-21 11:15 | NUR ---
At this time, propofol has been decreased to 35 mcg/kg/hr. Precedex remains at 0.4 mcg/kg/hr. Fentanyl remains at 25 mcg/hr. At this time, pt is responsive to verbal stimlulus. Calm and cooperative. Able to nod head yes/no to answer questions. Nods head "no" when asked if he is in pain. Pt mobile practice lead this RN's hands when instructed to do so. Pt is complaint with ventilator. No coughing or high peak pressures. Pt is not chewing on ETT. Will continue to closely reassess.
--- NOTE | 2020-11-21 14:45 | NUR ---
Propofol back up to 50 mcg/kg/hr along with fentanyl and precedex at same rates because pt was coughing and chewing on ETT to point where in-line suction could not be advanced.
--- NOTE | 2020-11-21 17:40 | NUR ---
SUMMARY At this time, sedation is at 50 mcg/kg/min propofol, 0.2 mcg/kg/hr precedex, and fentanyl 25 mcg/hr. Responsive to painful stimulus. Cough and gag present. PERRL. In bilat wrist restraint to prevent self extubation. Lungs clear t/o. Ventilator settings ACVC+ 18/450/12/50%. SpO2 90% or greater. More secretions from ETT than previous days worked with pt. Dr Palacios notified. Sputum sample sent. OG tube with feeds and flushes per orders, pt tolerating well. Maximum residual measured this shift 10 mL. No BM this shift. Excellent urine output from clayton catheter. Will continue to monitor until care handoff with oncoming RN.
--- NOTE | 2020-11-21 19:53 | NUR ---
ASSUMPTION OF CARE RECEIVED REPORT AT 1900 FROM EMERSON PALUMBO. ASSUMED CARE OF PATIENT. PATIENT SEDATED ON VENTILATOR WITH SETTINGS AC/VC+ 18/450/12/50%, WITH SATS ABOVE 95%. PROPOFOL IS AT 50MCG/KG, PRECEDEX IS AT 0.2MCG/KG, FENTANYL A 25MCG/HR. VITALS STABLE. COPIOUS SECRETIONS SUCTIONED BOTH ORALLY AND VIA ETT. PATIENT AROUSES TO PHYSICAL STIMULI, COUGHS AGAINST VENT AND PULLS AT RESTRAINTS. EASILY CALMS WITH DECREASED STIMULI. WILL REVIEW ORDERS AND TREAT PRESCRIBED.
--- NOTE | 2020-11-22 | NUR ---
REASSESSMENT NO ACUTE CHANGES FROM PREVIOUS ASSESSMENT. PATIENT SPONTANEOUSLY OPENS EYES, FOLLOWS COMMANDS, ATTEMPTS TO REACH TUBE WITH HANDS. CONTINUES WITH COPIOUS SECRETIONS BOTH ORALLY AND VIA ETT, REQUIRING FREQUENT SUCTIONING. TF REMAINS AT 25ML/HR WITH MINIMAL RESIDUALS. SEDATION TITRATIONS REMAINS UNCHANGED. FIO2 DECREASED TO 45% PER RT WITH SATS NOW AT 91-93%. WILL CONTINUE TO MONITOR RESPONSE. REPOSITIONED AND ORAL CARE COMPLETED.
--- NOTE | 2020-11-22 04:00 | NUR ---
REASSESSMENT NO ACUTE CHANGES FROM PREVIOUS ASSESSMENT. SEDATION VACATION PERFORMED, PATIENT ORIENTED, FOLLOWED COMMANDS, EQUAL STRENGTH TO BUE AND BLE. COPIOUS SECRETIONS CONTINUE VIA ORALLY AND ETT. MINIMAL RESIDUALS, TF AT 25ML/HR VIA OG ORDERED. REPOSITIONED, PATIENT HELPED TURN AND PUSHED SELF UP IN BED. FIO2 DECREASED TO 40% WITH SATS AT 94%. WILL CONTINUE TO MONITOR. SEDATION RESTARTED, PATIENT CURRENTLY SEDATED WITH NO S/S OF DISTRESS.
[2020-11-22 04:39] LABS: BASOPHILS ABSOLUTE AUTO 0.02 K/mm3 (0.00-0.23); BASOPHILS PERCENT AUTO 0 % (0-2); EOSINOPHILS ABSOLUTE AUTO 0.14 K/mm3 (0.00-0.68); EOSINOPHILS PERCENT AUTO 1 % (0-6); Hematocrit 36.4 % (37.0-53.0); Hemoglobin 11.9 g/dL (13.5-17.5); IMMATURE GRAN ABSOLUTE AUTO 0.19 K/mm3 (0.00-0.10); IMMATURE GRAN PERCENT AUTO 2 % (0-1); LYMPHOCYTES PERCENT AUTO 20 % (21-46); MONOCYTES ABSOLUTE AUTO 0.54 K/mm3 (0.16-1.47); MONOCYTES PERCENT AUTO 5 % (4-13); Mean Corpuscular HGB 29.1 pg (26.0-34.0); Mean Corpuscular HGB Conc 32.7 g/dL (31.5-36.5); Mean Corpuscular Volume 89 fL (80-100); Mean Platelet Volume 10.3 fL (9.1-12.4); NEUTROPHILS ABSOLUTE AUTO 7.26 K/mm3 (1.96-9.15); NEUTROPHILS PERCENT AUTO 72 % (41-73); Platelet Count 379 K/mm3 (150-400); RDW Coefficient Variation 13.6 % (11.7-14.2); RDW Standard Deviation 44.4 fL (35.1-46.3); Red Blood Cell Count 4.09 M/mm3 (4.30-5.90); White Blood Cell Count 10.15 K/mm3 (4.00-11.30)
[2020-11-22 04:57] LABS: Anion Gap 4 mmol/L (6-16); Blood Urea Nitrogen 15 mg/dL (8-24); Bun/Creatinine Ratio 23.1 (12.0-20.0); CO2, Blood 28 mmol/L (21-32); Calcium, Blood 8.1 mg/dL (8.5-10.1); Chloride, Blood 104 mmol/L (98-108); Creatinine, Blood 0.65 mg/dL (0.60-1.20); Glomerular Filtration Rate >60 (60-); Glucose, Blood 233 mg/dL (70-99); Phosphorus, Blood 2.3 mg/dL (2.5-4.9); Potassium, Blood 3.8 mmol/L (3.5-5.5); Sodium, Blood 136 mmol/L (136-145)
--- NOTE | 2020-11-22 06:35 | NUR ---
SHIFT SUMMARY PATIENT REMAINED INTUBATED AND SEDATED. VENT SETTINGS AC/VC + 18/450/12/40% WITH SATS 93%. SEDATION OF PROPOFOL AT 50MCG/KG, PRECEDEX 0.2MCG/KG, FENTANYL 25MCG/HR, PATIENT WILL AWAKEN, FOLLOWS COMMANDS AND HAS NORMAL STRENGTH AND RANGE OF MOTION TO BUE AND BLE. CONTINUES TO COUGH UP COPIOUS WHITE, THICK SECRETIONS VIA ETT AND ORALLY. TF AT GOAL OF 25ML/HR VIA OG WITH MINIMAL RESIDUALS. POTASSIUM PHOS REPLACEMENT INFUSING PER PHOS LAB RESULTS AND ORDERS FROM DR. BULLOCK. REPOSITIONING AND ORAL CARE PROVIDED CHARTED. PATIENT CURRENTLY SEDATED WITH NO S/S OF DISTRESS, VITALS STABLE. WILL CONTINUE TO MONITOR AND REPORT TO ONCOMING RN.
--- NOTE | 2020-11-22 08:00 | NUR ---
ASSUMPTION OF CARE PT REMAINS INTUBATED AT THIS TIME. VENT SETTINGS AC 18/450/12/40%. UPON AUSCULTATION, UPPER LOBES ARE CLEAR, LOWER ARE CLEAR AND DIMINISHED. PT RECEIVING PROPOFOL 50MCG/KG/MIN, PRECEDEX 0.2MCG/KG/HR, AND FENTANYL GGT AT 25MCG/HR. PT WAKENS TO LIGHT STERNAL RUB AND FOLLOWS VERBAL COMMANDS. TEMP MAI PATENT AND DRAINING CLEAR, YELLOW URINE. BILAT SOFT WRIST RESTRAINTS REMAIN IN PLACE TO PREVENT ACCIDENTAL EXTUBATION. LISINOPRIL HELD D/T SBP <100 PER PHYSICIAN ORDER. PT TOLERATES REPOSITIONING WELL. SEE SHIFT ASSESSMENT.
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
--- NOTE | 2020-11-22 18:33 | NUR ---
SHIFT SUMMARY PT CONDITION REMAINS UNCHANGED THROUGHOUT SHIFT. PT REMAINS INTUBATED WITH VENT SETTINGS AC 18/450/12/40. ETT ADVANCED 1CM BY TJ GAY PER DR CONCEPCION'S REQUEST AND MEASURES 25CM AT THE UPPER LIP. PT HAS HAD LARGE AMOUNTS OF CLEAR/WHITE SECRETIONS FROM MOUTH AND THICK YELLOW NASAL DRAINAGE. PT CURRENTLY RECEIVING PROPOFOL 50MCG/KG/MIN, PRECEDEX 0.2MCG/KG/HR, AND FENTANYL TIE IN HAND 25MCG/HR. TUBE FEED CONTINUES TO INFUSE AT GOAL RATE OF 25MLS/HR WITH 30ML FLUSH Q4. PT REMAINS IN BILAT SOFT WRIST RESTRAINTS. PT OCCASIONALLY OPENS EYES, CAN SQUEEZE HANDS. TMAX 100.0, MOST RECENT TEMP 98.7. VSS. MAI REMAINS PATENT DRAINING YELLOW URINE WITH MODERATE AMOUNT OF SEDIMENT. WILL REPORT TO ONCOMING RN.
--- NOTE | 2020-11-22 19:17 | NUR ---
ASSUMPTION OF CARE RECEIVED REPORT FROM FIORELLA PALUMBO AT 1858. ASSUMED CARE OF PATIENT. PATIENT VENTILATED AC/VC+ 18/450/12/35%, SEDATED WITH PROPOFOL OF 50MCG/KG, PRECEDEX DECREASED TO 0.1MCG/KG PER HEART RATE 50'S, FENTANYL AT 25MCG/HR. TF AT 25ML/HR INFUSING VIA OG. VITALS STABLE. MAI PATENT AND DRAINING CLEAR, YELLOW URINE. NO S/S OF DISTRESS. WILL REVIEW ORDERS AND TREAT PRESCRIBED.
--- NOTE | 2020-11-23 | NUR ---
REASSESSMENT NO ACUTE CHANGES FROM PREVIOUS ASSESSMENT. PATIENT SPONTANEOUSLY AWAKE. FOLLOWING COMMANDS, NODDING HEAD TO QUESTIONS. ROM PERFORMED BY PATIENT WITH RN ASSISTANCE. PATIENT ASSISTED RN TO TURN, REMAINED CALM AND COOPERATIVE. PATIENT NODDED HEAD TO YES WHEN ASKED IF HE WAS UNCOMFORTALE. PRECEDEX INCREASED, HEART RATE IN 70'S. SUCTIONED THIN, WHITE, SMALL AMOUNT OF SECRETIONS FROM ETT. FIO2 AT 30% WITH SATS ABOVE 90%. WILL CONTINUE TO MONITOR.
--- NOTE | 2020-11-23 01:11 | NUR ---
02 SATURATIONS PATIENT WITH 02SATS DOWN TO 87%. RN TO ROOM, AWOKE PATIENT, INCREASED FIO2 TO 100% AND PROVIDED SUCTIONING VIA ORALLY AND ETT. SUCTIONED SCANT SECRETIONS. SEDATION DECREASED, PRECEDEX TURNED OFF. PATIENT CALM/COOPERATIVE, FIO2 AT 35%, SATS AT 91%. RT INFORMED. PROPOFOL CONTINUES TO 50MCG/KG.
--- NOTE | 2020-11-23 04:00 | NUR ---
REASSESSMENT NO ACUTE CHANGES FROM PREVIOUS ASSESSMENT. PATIENT WIDE AWAKE, COPIOUS SECRETIONS REQUIRING SUCTIONING FROM ETT AND ORALLY. PATIENT FOLLOWING COMMANDS, RESPONDING APPROPRIATELY. NODDED HEAD YES WHEN ASKED IF HE WAS UNCOMFORTABLE. INCREASED PRECEDEX FOR COMFORT. TF AT GOAL OF 25ML/HR WITH 15ML RESIDUALS VIA OG. VENT SETTINGS UNCHANGED WITH FIO2 35%, SATS 91-94%. WILL CONTINUE TO MONITOR.
[2020-11-23 04:37] LABS: Albumin, Blood 2.1 g/dL (3.4-5.0); Anion Gap 4 mmol/L (6-16); Blood Urea Nitrogen 16 mg/dL (8-24); Bun/Creatinine Ratio 20.3 (12.0-20.0); CO2, Blood 30 mmol/L (21-32); Calcium, Blood 8.4 mg/dL (8.5-10.1); Chloride, Blood 105 mmol/L (98-108); Creatinine, Blood 0.79 mg/dL (0.60-1.20); Glomerular Filtration Rate >60 (60-); Glucose, Blood 207 mg/dL (70-99); Phosphorus, Blood 2.5 mg/dL (2.5-4.9); Potassium, Blood 3.6 mmol/L (3.5-5.5); Sodium, Blood 139 mmol/L (136-145)
--- NOTE | 2020-11-23 06:21 | NUR ---
SHIFT SUMMARY PATIENT SEDATED ON PROPOFOL OF 50MCG/KG, FENTANYL 25MCG/HR, PRECEDEX 0.3MCG/KG. PATIENT EASILY AWAKENS, FOLLOWS COMMANDS, CURRENTLY COMFORTABLE WITH SEDATION. TF REMAIN AT GOAL OF 25ML/HR VIA OG WITH MINIMAL RESIDUALS. MAI PATENT AND DRAINING CLEAR, YELLOW URINE. LABS REVIEWED, WILL MONITOR AND REPORT TO ONCOMING RN.
--- NOTE | 2020-11-23 08:15 | NUR ---
ASSUMED CARE: REPORT RECEIVED FROM DIMA Hanley RN. ASSUMED CARE OF THIS PT AT APPROX 0700. ON ASSESSMENT, THE PT IS SEDATED W/ PROPOFOL, PRECEDED & FENTANYL. INTUBATED W/ 8.0 ETT NOTED TO BE 25.0 CM JOSE. THE PT AWAKENS TO VERBAL STIMULUS & FOLLOWS DIRECTIONS W/O DIFFICULTY. LS ARE COARSE T/O W/ MOD AMNTS OF THICK ROJAS SPUTUM SUCTIONED THROUGH ETT. VENT SETTINGS: AC/VC+ 18/450/12/35% W/ O2 SATS > 92%. PT ALSO HAS COPIOUS AMNTS ORAL SECRETIONS THAT NEED FREQUENT SUCTIONING W/ SHERRY. OGT IN PLACE W/ TUBE FEEDS AT GOAL, LOW RESIDUALS - SEE I&O. TEMP MAI PATENT/ DRAINING. SKIN OVERALL CDI, Q2H REPOSITIONING TO MAINTAIN SKIN INTEGRITY. BILAT SOFT WRIST RESTRAINTS IN PLACE. RESTRAINTS REMOVED WHILE THIS RN AT BEDSIDE & PT COMPLETING ROM W/ MIN ASSIST. WILL CONTINUE TO MONITOR & UPDATE NEEDED.
--- NOTE | 2020-11-23 10:10 | NUR ---
DR CERNA: PROVIDER AT BEDSIDE TO EVAL PT. NO CHANGES MADE TO VENT SETTINGS. NOW DOSE OF SEMGLEE ORDERED & HS DOSE OF SEMGLEE INCREASED FOR PERSISTANT HYPERGLYCEMIA.
--- NOTE | 2020-11-23 18:53 | NUR ---
SHIFT SUMMARY: NO ACUTE CHANGES SINCE PRIOR UPDATES. PT REMAINS INTUBATED & SEDATED. WHEN RN AT BEDSIDE, THE PT IS BRIEFLY UNRESTRAINED & COMPLETES ROM EXERCISES W/ BUE. LS ALTERNATE BETWEEN COARSE & CLEAR/DIM, VENT SETTINGS: AC/VC+ 18/450/10/35% W/ O2 SATS > 90% ON AVG. MONITOR SHOWS SB-SR W/ HR 50-60s, BP STABLE. OGT IN PLACE W/ TUBE FEEDS INFUSING AT GOAL RATE, LOW RESIDUALS - SEE I&O. PT HAS HAD ONE SMALL BROWN PASTY BM THIS SHIFT. TEMP MAI PATENT/ DRAINING. SKIN CONDITION OVERALL CDI, Q2H REPOSITIONING TO MAINTAIN SKIN INTEGRITY. WILL CONTINUE TO MONITOR & REPORT OFF TO ONCOMING RN.
--- NOTE | 2020-11-23 19:21 | NUR ---
ASSUMPTION OF CARE RECEIVED REPORT FROM LES PALUMBO AT 1910, ASSUMED CARE OF PATIENT. PATIENT SEDATED ON PROPOFOL 50MCG/KG, FENTANYL 25MCG/HR, AND PRECEDEX 0.3MCG/KG, HEART RATE IN 40'S PRECEDEX DECREASED TO 0.2MCG/KG. PATIENT WITH SAS OF 3, APPEARS COMFORTABLE WITH NO S/S OF DISTRESS. TF INFUSING AT 25ML/HR ORDERED. INTUBATED WITH ETT 25 AT LIP, VENT AC/VC+ 18/450/10/35% 02 SATS 95%. VITALS STABLE, MAI PATENT AND DRAINING CLEAR, YELLOW URINE. BILAT WRIST RESTRAINTS IN PLACE AND SECURED. WILL REVIEW ORDERS AND TREAT PRESCRIBED.
--- NOTE | 2020-11-24 | NUR ---
REASSESSMENT NO ACUTE CHANGES FROM PREVIOUS ASSESSMENT. VENT SETTINGS AND SEDATION REMAIN UNCHANGED. PATIENT EASILY AWOKE DURING REPOSITIONING, PERFORMED ROM, MOVING HANDS AND LEGS INDEPENDENTLY AND FOLLOWING COMMANDS. NO S/S OF DISTRESS. VITALS STABLE. WILL CONTINUE TO MONITOR.
[2020-11-24 04:31] LABS: BASOPHILS ABSOLUTE AUTO 0.02 K/mm3 (0.00-0.23); BASOPHILS PERCENT AUTO 0 % (0-2); EOSINOPHILS ABSOLUTE AUTO 0.09 K/mm3 (0.00-0.68); EOSINOPHILS PERCENT AUTO 1 % (0-6); Hematocrit 36.8 % (37.0-53.0); Hemoglobin 11.9 g/dL (13.5-17.5); IMMATURE GRAN PERCENT AUTO 1 % (0-1); LYMPHOCYTES ABSOLUTE AUTO 1.62 K/mm3 (0.84-5.20); LYMPHOCYTES PERCENT AUTO 19 % (21-46); MONOCYTES ABSOLUTE AUTO 0.58 K/mm3 (0.16-1.47); MONOCYTES PERCENT AUTO 7 % (4-13); Mean Corpuscular HGB 29.2 pg (26.0-34.0); Mean Corpuscular HGB Conc 32.3 g/dL (31.5-36.5); Mean Corpuscular Volume 90 fL (80-100); Mean Platelet Volume 10.6 fL (9.1-12.4); NEUTROPHILS ABSOLUTE AUTO 6.04 K/mm3 (1.96-9.15); NEUTROPHILS PERCENT AUTO 71 % (41-73); Platelet Count 333 K/mm3 (150-400); RDW Coefficient Variation 13.9 % (11.7-14.2); RDW Standard Deviation 46.5 fL (35.1-46.3); Red Blood Cell Count 4.08 M/mm3 (4.30-5.90); White Blood Cell Count 8.45 K/mm3 (4.00-11.30)
--- NOTE | 2020-11-24 04:34 | NUR ---
REASSESSMENT NO ACUTE CHANGES FROM PREVIOUS ASSESSMENT. VENT SETTINGS AND SEDATION UNCHANGED. RESIDUALS OF 10ML REFED. REPOSITIONED AND ORAL CARE PROVIDED CHARTED. PATIENT REMAINS SAS OF 3, DID AWAKEN DURING REPOSITIONING, CALM AND COOPERATIVE WITH CARE. WILL CONTINUE TO MONITOR.
[2020-11-24 04:48] LABS: Anion Gap 2 mmol/L (6-16); Blood Urea Nitrogen 16 mg/dL (8-24); Bun/Creatinine Ratio 20.6 (12.0-20.0); CO2, Blood 31 mmol/L (21-32); Calcium, Blood 8.2 mg/dL (8.5-10.1); Chloride, Blood 105 mmol/L (98-108); Creatinine, Blood 0.78 mg/dL (0.60-1.20); Glomerular Filtration Rate >60 (60-); Glucose, Blood 248 mg/dL (70-99); Potassium, Blood 3.9 mmol/L (3.5-5.5); Sodium, Blood 138 mmol/L (136-145)
--- NOTE | 2020-11-24 06:18 | NUR ---
SHIFT SUMMARY PATIENT REMAINED INTUBATED AND SEDATED. VENT SETTINGS AC/VC+ 18/450/10/35%. PROPOFOL AT 50MCG/KG, PRECEDEX AT 0.2MCG/KG, AND FENTNAYL AT 25MCG/HR. PATIENT EASILY AWAKENS, MOVES EXTREMITIES AND PERFORMS ROM INDEPENDENTLY. WHEN NOT STIULATED, PATIENT APPEARS TO REST COMFORTABLE. VITALS STABLE THROUGH NIGHT. SUCTIONED THICK, WHITE SPUTUM SEVERAL TIMES THROUGH SHIFT. NO ACUTE EVENTS NOTED. MEDICATED CHARTED, REPOSITIONED FOR COMFORT. WILL CONTINUE TO MONITOR AND REPORT TO ONCOMING RN.
--- NOTE | 2020-11-24 08:30 | NUR ---
ASSUMED CARE: REPORT RECEIVED FROM DIMA Hanley RN. ASSUMED CARE OF THIS PT AT APPROX 0700. ON ASSESSMENT, THE PT IS AWAKE W/ PROPOFOL, PRECEDEX & FENTANYL INFUSING FOR SEDATION. HE IS INTUBATED W/ 8.0 ETT NOTED TO BE 25.0 CM JOSE. HE IS NOTED TO HAVE COPIOUS AMNTS OF GREEN SECRETIONS COMING OUT OF NOSE & MOUTH. ETT SUCTION & ORAL SUCTION W/ YANKAUR COMPLETED & THE PT IS AGAIN RESTING QUIETLY. WHILE AWAKE & RN AT BEDSIDE, THE PT IS BRIEFLY UNRESTRAINED & COMPLETES ROM EXERCISES OF EXTREMITIES. LS ARE CLEAR, DIM IN BASES. VENT SETTINGS: AC/VC+ 18/450/10/35% W/ O2 SATS > 92%. MONITOR SHOWS SR W/ HR 60-70s, BP STABLE. OGT IN PLACE W/ TUBE FEED INFUSING AT GOAL RATE, LOW RESIDUALS - SEE I&O. TEMP MAI PATENT/ DRAINING DARK YELLOW URINE. SKIN CONDITION OVERALL CDI, Q2H REPOSITIONING COMPLETED TO MAINTAIN SKIN INTEGRITY. WILL CONTINUE TO MONITOR & UPDATE NEEDED.
--- NOTE | 2020-11-24 18:35 | NUR ---
SHIFT SUMMARY: NO ACUTE CHANGES SINCE PRIOR UPDATES. PT REMAINS LIGHTLY SEDATED W/ PROPOFOL, PRECEDEX & FENTANYL. THE PT IS ALERT/ORIENTED TO HIMSELF, FOLLOWING DIRECTIONS & HIS WHILE AT BEDSIDE. HE IS COMMUNICATING BY MAKING GESTURES OR NODDING HIS HEAD YES/NO. VENT SETTINGS CHANGED FROM SPONTANEOUS TO AC/VC+ 18/450/10/40% AT APPROX 1700 & IS TOLERATING THIS WELL DESPITE LOWER DOSE OF PROPOFOL. LS ARE COARSE ON R SIDE, DIM ON L. PT HAVING LARGE AMNTS STRINGY ROJAS SPUTUM SUCTIONED THROUGH ETT. SAMPLE SENT TODAY PER ORDERS. MONITOR SHOWS SB-SR W/ HR 50-70s, BP STABLE. OGT IN PLACE W/ TUBE FEEDS AT GOAL RATE, LOW RESIDUALS - SEE I&O. RECTAL TUBE PLACE THIS AFTERNOON FOR LARGE AMNTS LIQUID STLS. SKIN CONDITION OVERALL CDI W/ Q2H REPOSITIONING TO MAINTAIN SKIN INTEGRITY. WILL CONTINUE TO MONITOR & REPORT OFF TO ONCOMING RN.
--- NOTE | 2020-11-24 19:42 | NUR ---
ASSUMPTION OF CARE RECEIVED REPORT FROM LES PALUMBO. ASSUMED CARE OF PATIENT. VENTILATED AND SEDATED, VENT SETTINGS AC/VC+ 18/450/10/40%. PROPOFOL AT 25MCG/KG, FENTANYL AT 25MCG/HR, PRECEDEX AT 0.2MCG/KG. PATIENT WITH EYES CLOSED, NO S/S OF DISTRESS. TF AT 25ML/HR VIA OG. MAI PATENT AND DRAINING CLEAR, YELLOW URINE. RECTAL TUBE WITH NO OUTPUT AT THIS TIME. VITAL STABLE. WILL REVIEW ORDERS AND TREAT PRESCRIBED.
--- NOTE | 2020-11-25 | NUR ---
REASSESSMENT NO ACUTE CHANGES FROM PREVIOUS ASSESSMENT. VITALS STABLE. VENT SETTINGS AND SEDATION UNCHANGED. PATIENT AWAKENS, CALM/COOPERATIVE. IS COMFORTABLE, ASSISTED WITH TURN AND PERFORMED ROM INDEPENDENTLY. TF AT 25ML/HR WITH MINIMAL RESIDUALS. WILL CONTINUE TO MONITOR.
[2020-11-25 03:16] LABS: BASOPHILS ABSOLUTE AUTO 0.02 K/mm3 (0.00-0.23); BASOPHILS PERCENT AUTO 0 % (0-2); EOSINOPHILS ABSOLUTE AUTO 0.09 K/mm3 (0.00-0.68); EOSINOPHILS PERCENT AUTO 1 % (0-6); Hemoglobin 11.5 g/dL (13.5-17.5); IMMATURE GRAN PERCENT AUTO 1 % (0-1); LYMPHOCYTES ABSOLUTE AUTO 1.63 K/mm3 (0.84-5.20); LYMPHOCYTES PERCENT AUTO 18 % (21-46); MONOCYTES ABSOLUTE AUTO 0.64 K/mm3 (0.16-1.47); MONOCYTES PERCENT AUTO 7 % (4-13); Mean Corpuscular HGB Conc 31.9 g/dL (31.5-36.5); Mean Corpuscular Volume 91 fL (80-100); Mean Platelet Volume 10.4 fL (9.1-12.4); NEUTROPHILS ABSOLUTE AUTO 6.49 K/mm3 (1.96-9.15); NEUTROPHILS PERCENT AUTO 72 % (41-73); Platelet Count 316 K/mm3 (150-400); RDW Standard Deviation 46.3 fL (35.1-46.3); Red Blood Cell Count 3.97 M/mm3 (4.30-5.90); White Blood Cell Count 8.97 K/mm3 (4.00-11.30)
--- NOTE | 2020-11-25 03:27 | NUR ---
SEDATION PATIENT WIDE AWAKE, COUGHING COPIOUS SECRETIONS. SUCTIONED ETT AND ORALLY, SECRETIONS SATURATED GOWN, AND RUGGIERO. GOWN CHANGED AND SECRETIONS CLEANED FROM RUGGIERO. PATIENT USED HAND MOTIONS TO COMMUNICATE AND NODDED HEAD YES TO BEING UNCOMFORTABLE. SEDATION INCREASED. PATIENT BEGAN DESATTING TO 87-88%. FIO2 INCREASED TO 45%. HENNA GAY NOTIFIED. PT REPOSITIONED AND BOOSTED IN BED. SATS AT 90%. PATIENT GAVE A THUMBS UP TO BEING ASKED IF HE WAS NOW COMFORTABLE. APPEARS TO REST COMFORABLY. WILL CONTINUE TO MONITOR.
[2020-11-25 03:34] LABS: Alanine Aminotransfer (ALT/SGP 45 U/L (12-78); Albumin, Blood 2.1 g/dL (3.4-5.0); Albumin/Globulin Ratio 0.4 (0.8-1.8); Alk Phos 54 U/L (50-136); Anion Gap 3 mmol/L (6-16); Aspartate Aminotrans (AST/SGOT 28 U/L (12-37); Bilirubin, Total 0.3 mg/dL (0.1-1.0); Blood Urea Nitrogen 17 mg/dL (8-24); Bun/Creatinine Ratio 20.8 (12.0-20.0); CO2, Blood 31 mmol/L (21-32); Calcium, Blood 8.3 mg/dL (8.5-10.1); Chloride, Blood 107 mmol/L (98-108); Creatinine, Blood 0.82 mg/dL (0.60-1.20); Glomerular Filtration Rate >60 (60-); Glucose, Blood 167 mg/dL (70-99); Magnesium, Blood 2.3 mg/dL (1.6-2.4); Phosphorus, Blood 2.5 mg/dL (2.5-4.9); Potassium, Blood 3.8 mmol/L (3.5-5.5); Sodium, Blood 141 mmol/L (136-145); Total Protein, Blood 7.1 g/dL (6.4-8.2)
--- NOTE | 2020-11-25 04:00 | NUR ---
REASSESSMENT NO ACUTE CHANGES FROM PREVIOUS ASSESSMENT. VITALS STABLE. PATIENT RESTING COMFORTABLY. SEDATION AND VENT SETTINGS REMAIN UNCHANGED. CALL LIGHT IN LEFT HAND.
--- NOTE | 2020-11-25 06:05 | NUR ---
SHIFT SUMMARY PATIENT REMAINED VENTILATED AND SEDATED, MOSTLY AWAKE THROUGH NIGHT. ADJUSTED SEDATION FOR COMFORT PER PATIENT'S REQUEST. COPIOUS SECRETIONS SUCTIONED VIA ETT AND ORALLY. TF REMAIN AT GOAL WITH MINIMAL RESIDUALS. VITALS STABLE. LOW GRADE TEMP NOTED, FAN PROVIDED TO PATIENT. MAI PATENT AND DRAINING, RECTAL TUBE INTACT WITH MINIMAL OUTPUT. VITALS STABLE THROUG SHIFT. WILL MONITOR AND REPORT TO ONCOMING RN.
--- NOTE | 2020-11-25 08:30 | NUR ---
ASSUMED CARE REPORT FROM DIMA PALUMBO AT 0700. PT INTUBATED AND SEDATED. VENT SETTINGS CHANGED AT SHIFT CHANGE TO SPONT 10/10 40%. TOLERATING WELL. TIDAL VOLUMES LOW 400'S, RR 20. PROPOFOL, PRECEDEX AND FENTANYL GTT INFUSING. PT OPENS EYES SPONTANEOUSLY, FOLLOWS COMMANDS, NODS HEAD APPROPRIATELY TO QUESTIONS. LUNGS COARSE, DIMINISHED IN BASES. COPIOUS ORAL SECRETIONS. THIN, WHITE SECRETIONS THROUGH ETT. ABD DISTENDED, HYPOACTIVE BT. TUBE FEEDS AT GOAL, NO RESIDUALS THIS AM. MAI PATENT, DRAINING TO GRAVITY. RECTAL TUBE IN PLACE, SMALL BROWN STOOL IN TUBE. BP STABLE. WILL CONTINUE TO MONITOR.
--- NOTE | 2020-11-25 17:06 | NUR ---
SHIFT SUMMARY PT REMAINED ON SPONT / 40% FOR MOST OF SHIFT. RECENTLY CHANGED TO AC 18/450/8/40%. LUNGS DIMINISHED IN BASES. COUGH/GAG/SWALLOW REFLEX PRESENT. MODERATE SECRETIONS THROUGH ETT AND ORALLY, IMPROVED THROUGHOUT SHIFT. PT ABLE TO FOLLOW COMMANDS, NOD HEAD YES/NO. PRECEDEX, PROPOFOL AND FENTANYL GTT CONTINUE. ABLE TO PUSH CALL LIGHT AND MAKE NEEDS KNOWN. PT COOPERATIVE c CARE. WASHES OWN FACE, TEXTS ON PHONE. ABD ROUND, DISTENDED. HYPOACTIVE BT. RECTAL TUBE REMOVED THIS SHIFT. TUBE FEEDS INCREASED PER DIETARY, AT 35 ML/HR, GOAL 45 ML/HR. NSR, RATE 50-60, BP STABLE. MAI PATENT, DRAINING TO GRAVITY. WILL CONTINUE TO MONITOR UNTIL REPORT TO ONCOMING NURSE.
--- NOTE | 2020-11-25 20:00 | NUR ---
ASSUMED CARE OF PT AT 1915. PT PRESENTS IN BED. INTUBATED. MAKES GOOD EYE CONTACT WHEN THIS RN ENTERS ROOM. PT IN NO APPARENT DISTRESS. PROPOFOL, FENTANYL, AND PRECEDEX FOR SEDATION AND VENT TOLERANCE. WILL REVIEW CHART AND PLAN OF CARE FOR THIS PT.
--- NOTE | 2020-11-26 01:00 | NUR ---
HAVE REMOVED RESTRAINTS FROM PT. WHEN HE IS BEING TURNED OR INTERACTING WITH RN, HE DOES NOT MAKE ANY ATTEMPTS TO REACH FOR ANY TUBES OR LINES. DISCUSSED WITH PT LEAVING RESTRAINTS OFF, AND THAT HE NEEDS TO BE CAREFUL TO NOT REACH FOR LINES. PT NODS HEAD 'YES' AND GIVES A THUMBS UP. HAVE SUCTIONED PT PER ETT SEVERAL TIMES FOR MODERATE AMOUNTS OF CLEAR TO LIGHT ROJAS COLORED SECRETIONS. PT TOLERATES THIS WELL. WILL CONTINUE TO MONITOR PT.
[2020-11-26 05:47] LABS: BASOPHILS ABSOLUTE AUTO 0.04 K/mm3 (0.00-0.23); BASOPHILS PERCENT AUTO 0 % (0-2); EOSINOPHILS ABSOLUTE AUTO 0.09 K/mm3 (0.00-0.68); EOSINOPHILS PERCENT AUTO 1 % (0-6); Hematocrit 31.2 % (37.0-53.0); Hemoglobin 10.3 g/dL (13.5-17.5); IMMATURE GRAN PERCENT AUTO 1 % (0-1); LYMPHOCYTES ABSOLUTE AUTO 1.77 K/mm3 (0.84-5.20); LYMPHOCYTES PERCENT AUTO 19 % (21-46); MONOCYTES ABSOLUTE AUTO 0.71 K/mm3 (0.16-1.47); MONOCYTES PERCENT AUTO 8 % (4-13); Mean Corpuscular HGB 29.6 pg (26.0-34.0); Mean Corpuscular Volume 90 fL (80-100); Mean Platelet Volume 10.4 fL (9.1-12.4); NEUTROPHILS ABSOLUTE AUTO 6.81 K/mm3 (1.96-9.15); NEUTROPHILS PERCENT AUTO 72 % (41-73); Platelet Count 298 K/mm3 (150-400); RDW Coefficient Variation 13.8 % (11.7-14.2); RDW Standard Deviation 45.1 fL (35.1-46.3); Red Blood Cell Count 3.48 M/mm3 (4.30-5.90); White Blood Cell Count 9.52 K/mm3 (4.00-11.30)
[2020-11-26 06:04] LABS: Anion Gap 5 mmol/L (6-16); Blood Urea Nitrogen 15 mg/dL (8-24); Bun/Creatinine Ratio 22.2 (12.0-20.0); CO2, Blood 30 mmol/L (21-32); Calcium, Blood 8.3 mg/dL (8.5-10.1); Chloride, Blood 103 mmol/L (98-108); Creatinine, Blood 0.68 mg/dL (0.60-1.20); Glomerular Filtration Rate >60 (60-); Glucose, Blood 209 mg/dL (70-99); Phosphorus, Blood 3.1 mg/dL (2.5-4.9); Potassium, Blood 3.2 mmol/L (3.5-5.5); Sodium, Blood 138 mmol/L (136-145)
--- NOTE | 2020-11-26 06:30 | NUR ---
PT HAS NOT MADE ANY ATTEMPTS AT PULLING AT LINES. CONTINUES ON PRECEDEX AND PROPOFOL UNCHANGED. FENTANYL DRIP CONTINUES. PT NODS HEAD 'NO' TO QUESTION OF PAIN. TOLERATES TURNS IN BED. WILL CONTINUE TO MONITOR PT, AND WILL REPORT OFF TO ONCOMING RN.
--- NOTE | 2020-11-26 08:20 | NUR ---
ASSUMED CARE REPORT FROM RADHA PALUMBO. PT INTUBATED AND SEDATED. VENT SETTINGS CHANGED TO SPONT 10/8 40%. TOLERATING WELL. TIDAL VOLUMES HIGH 200'S. ABLE TO TAKE DEEP BREATHS c INSTRUCTION. LUNGS DIMINISHED IN BASES. THIN CLEAR SECRETIONS ORALLY AND THROUGH ETT. IMPROVED SINCE YESTERDAY. FOLLOWS COMMANDS. NODS HEAD TO QUESTIONS. ABLE TO MAKE NEEDS KNOWN. CALM AND COOPERATIVE. STRONG COUGH REFLEX. TUBE FEEDS AT GOAL, MINIMAL RESIDUALS. MAI PATENT, DRAINING TO GRAVITY. VSS. WILL CONTINUE TO MONITOR.
--- NOTE | 2020-11-26 10:10 | NUR ---
DR CERNA ROUNDS PT CONTINUES TO TAKE HIGH 200 ML TIDAL VOLUMES. PRECEDEX AND PROPOFOL PLACED ON STANDBY. FENTANYL GTT DECREASED TO 12 MCG/HR. EDUCATED PT ON DEEP BREATHS AND REDUCTION IN SEDATIVES. PT AGREEABLE. WILL CONTINUE BREATHING TRIAL FOR POSSIBLE EXTUBATION THIS AFTERNOON.
--- NOTE | 2020-11-26 15:48 | NUR ---
EXTUBATION PT TOLERATING SPONT 5/5 45%. TIDAL VOLUMES 500ML. PRECEDEX AND FENTANYL PLACED ON STANDBY. PT EXTUBATED AT 1433. PT ABLE TO MANAGE SECRETIONS c YANKEUR. PT HAS STRIDOR SOUNDING RESP IMMEDIATELY AFTER EXTUBATION. SLOW TO RESPOND D/T HOARSE VOICE. PT REPORTS PAIN TO THROAT. MEDICATED c ATIVAN AND FENTANYL. VOICE IMPROVED, STRIDOR RESOLVED. LUNGS DIMINISHED THROUGHOUT. PT ON 5L VIA NC. COOL HUMIDIFIED AIR. TOLERATING WELL.
--- NOTE | 2020-11-26 17:48 | NUR ---
SHIFT SUMMARY PT EXTUBATED THIS SHIFT. SEE NOTE. VOICE REMAINS SOFT AND HOARSE. HAVE NOT ATTEMPTED SWALLOW EVAL YET. PT ABLE TO MANAGE SECRETIONS destiney HAYNES. FENTANYL PRN GIVEN FOR THROAT PAIN. PT UP TO CHAIR FOR 3 HOURS THIS SHIFT. TOLERATED WELL. BACK TO BED. VSS. WILL CONTINUE TO MONITOR UNTIL REPORT TO ONCOMING NURSE.
--- NOTE | 2020-11-26 20:00 | NUR ---
ASSUMED CARE OF PT A 1914. REPORT RECEIVED. PT PRESENTS IN BED. ALERT AND ORIENTED. ABLE TO MAKE HIS NEEDS KNOWN. VOICE MORE OF WHISPER. O2 PER NASAL CANNULA AT 5 L/M. OCCASSIONAL COUGH WITH PRODUCTION OF THIN SECRETIONS. PT ABLE TO SELF CLEAR USING YAUNKEUR. WILL REVIEW CHART AND PLAN OF CARE FOR THIS PT.
--- NOTE | 2020-11-26 23:00 | NUR ---
CALLED MADE TO DR CERNA CONCERNING BLOOD PRESSURES BEING ELEVATED. ORDER RECEIVED FOR PRN LABATELOL. DID DO MODIFIED BEDSIDE SWALLOW EVAL WITH HONEY THICK FLUID, AND THEN APPLESAUCE. PT WAS ABLE TO SWALLOW WITHOUT COUGH. WAS ABLE TO TAKE DOSE OF LISINOPRIL.
[2020-11-27 04:50] LABS: BASOPHILS ABSOLUTE AUTO 0.05 K/mm3 (0.00-0.23); BASOPHILS PERCENT AUTO 1 % (0-2); EOSINOPHILS PERCENT AUTO 1 % (0-6); Hematocrit 35.1 % (37.0-53.0); Hemoglobin 11.7 g/dL (13.5-17.5); IMMATURE GRAN ABSOLUTE AUTO 0.09 K/mm3 (0.00-0.10); IMMATURE GRAN PERCENT AUTO 1 % (0-1); LYMPHOCYTES ABSOLUTE AUTO 1.79 K/mm3 (0.84-5.20); LYMPHOCYTES PERCENT AUTO 18 % (21-46); MONOCYTES ABSOLUTE AUTO 0.75 K/mm3 (0.16-1.47); MONOCYTES PERCENT AUTO 7 % (4-13); Mean Corpuscular HGB 29.4 pg (26.0-34.0); Mean Corpuscular HGB Conc 33.3 g/dL (31.5-36.5); Mean Corpuscular Volume 88 fL (80-100); Mean Platelet Volume 10.2 fL (9.1-12.4); NEUTROPHILS ABSOLUTE AUTO 7.34 K/mm3 (1.96-9.15); NEUTROPHILS PERCENT AUTO 73 % (41-73); Platelet Count 339 K/mm3 (150-400); RDW Coefficient Variation 13.6 % (11.7-14.2); RDW Standard Deviation 43.9 fL (35.1-46.3); Red Blood Cell Count 3.98 M/mm3 (4.30-5.90); White Blood Cell Count 10.12 K/mm3 (4.00-11.30)
[2020-11-27 05:06] LABS: Anion Gap 5 mmol/L (6-16); Blood Urea Nitrogen 10 mg/dL (8-24); Bun/Creatinine Ratio 14.4 (12.0-20.0); CO2, Blood 26 mmol/L (21-32); Calcium, Blood 8.6 mg/dL (8.5-10.1); Chloride, Blood 108 mmol/L (98-108); Creatinine, Blood 0.69 mg/dL (0.60-1.20); Glomerular Filtration Rate >60 (60-); Glucose, Blood 162 mg/dL (70-99); Potassium, Blood 3.6 mmol/L (3.5-5.5); Sodium, Blood 139 mmol/L (136-145)
--- NOTE | 2020-11-27 06:55 | NUR ---
PT WAS ABLE TO GET UP TO BEDSIDE COMMODE WITH 1 PERSON ASSIST. PT NEEDS SOME COACHING DURING TRANSFER. PT PASSES COPIOUS FLATUS AND IS ABLE TO PASS LARGE STOOL. HAVE PROVIDED PT WITH CEPACOL FOR THROAT DISCOMFORT. PT STATES THAT THIS HAS BEEN HELPFUL. NASAL CANNULA AT 5 LITERS TO KEEP SATURATIONS > 90 PERCENT. WILL CONTINUE TO MONITOR PT, AND WILL REPORT OFF TO ONCOMING RN.
--- NOTE | 2020-11-27 08:10 | NUR ---
ASSUMED CARE: REPORT RECEIVED FROM RADHA Pringle RN. ASSUMED CARE OF THIS PT AT APPROX 0700. ON ASSESSMENT, THE PT IS A&O, PLEASANT & COOPERATIVE. HE IS SPEAKING IN HUSHED/ HOARSE TONES & HAS C/O THROAT SORENESS S/P EXTUBATION YESTERDAY (11/26/20). LS ARE DIM IN BASES, PT ON 6L NC W/ O2 SATS > 92%. MONITOR SHOWS SR W/ HR 60, HTN W/ SCHEDULED MEDS PER EMAR. BOWEL CARE MEDS HELD THIS AM FOR DIARRHEA DURING HEART SURGEON. PT C/O "STOMACH UPSET/ DISCOMFORT" THAT IS SOMEWHAT ALEVIATED W/ REPOSITIONING. TEMP MAI PATENT/ DRAINING DARK YELLOW URINE. SKIN CONDITION OVERALL CDI, PT REPOSITIONS SELF FOR COMFORT. WILL CONTINUE TO MONITOR & UPDATE NEEDED.
--- NOTE | 2020-11-27 11:00 | NUR ---
DR JOHNSTON: PROVIDER AT BEDSIDE TO BRANDON PT. NOTIFIED HER OF PT's C/O RT SIDE EAR ACHE & MOUTH SORENESS. ORDERS PLACED FOR NYSTATIN SWISH & SWALLOW & MAGIC MOUTH WASH. SHE WOULD LIKE SPEECH THERAPY TO SEE THE PT R/T HOARSE VOICE & SORE THROAT S/P EXTUBATION. ORDERS FOR PHYSICAL & OCCUPATIONAL THERAPIES ALSO PLACED. THE PT IS NOW PCU STATUS.
--- NOTE | 2020-11-27 18:48 | NUR ---
SHIFT SUMMARY: NO ACUTE CHANGES SINCE PRIOR UPDATES. PT REMAINS A&O, PLEASANT & COOPERATIVE. HE CONTINUES SPEAKING HUSHED TONES W/ HOARSE VOICE. LS CLEAR, DIM IN BASES. PT ON 4L NC W/ O2 SATS > 92%. MONITOR SHOWS SR-ST W/ HR 90-100s, BP STABLE. PT TOLERATING SMALL AMNTS OF PO INTAKE WELL. MAI PATENT/ DRAINING DARK YELLOW URINE. SKIN CONDITION OVERALL CDI, Q2H REPOSITIONING COMPLETED TO MAINTAIN SKIN INTEGRITY. WILL CONTINUE TO MONITOR & REPORT OFF TO ONCOMING RN.
--- NOTE | 2020-11-27 21:55 | NUR ---
SHIFT ASSESSMENT ASSUMED CARE OF PT @ 1900. REPORT RECEIVED FROM LINWOOD SALDANA. PT A&O, FRIENDLY AND COOPERATIVE. DIFFICULT TO UNDERSTAND/ HEAR DUE TO SORE THROAT POST EXTUBATION. SPEAKING VIA WHISPER. LS CLEAR, DIMINISHED BASES. CURRENTLY ON 4LPM O2 VIA NC c O2 SATS >90%. FOOD AT BEDSIDE, PT SLOWLY EATING. PT WORKED WITH PT TODAY, USING WALKER TO GET TO BEDSIDE COMMODE. TEMP MAI CATH IN PLACE, DRAINING YELLOW URINE. PT TURNING SELF IN BED, NO COMPLAINTS OR CONCERNS AT THIS TIME. CALL LIGHT WITHIN REACH, WILL CONTINUE TO MONITOR CLOSELY.
--- NOTE | 2020-11-28 06:32 | NUR ---
SHIFT SUMMARY PT REMAINS A&OX4. AROUND MIDNIGHT PT REMOVED O2 VIA NC. SATS REMAINED >90% ON RA T/O THE NIGHT. PT DENIED FEELINGS OF SOB. THIS AM AROUND 0530 PT ATTEMPTED TO LAY FLAT ON HIS LEFT SIDE, O2 SATS DROPPED TO 87/88% ON RA. PT PLACED ON 2LPM O2 VIA NC WHILE ON L SIDE c O2 SATS >95%. PT MOVING SELF IN BED, SITTING UPRIGHT WITH FEET OFF THE EDGE WHILE EATING/ DRINKING. PT ABLE TO SLEEP IN SHORT INTERVALS. NO OTHER SIGNIFICANT CHANGES IN PT CONDITION. WILL CONTINUE TO MONITOR, REPORT TO ONCOMING NURSE.
--- NOTE | 2020-11-28 11:43 | NUR ---
REASSESSMENT PT HAS BEEN RESTING IN BED THROUGHOUT THE MORNING. GOT UP ONCE TO THE BATHROOM, WHICH PT STATES MADE HIM A LITTLE SHORT OF BREATH. LUNGS ARE CLEAR BUT DIM. PT IS ON RA AT REST, WITH PROLONGED ACTIVITY HE SOMETIMES NEEDS 2L/NC TO HELP HIM RECOVER. SR, BP HYPERTENSIVE AT TIMES, PRN LABETALOL. SPEECH THERAPY CAME BY AND UPGRADED DIET TO MECHANICAL SOFT. PT ATE A SMALL AMT OF HIS BREAKFAST. MAI REMOVED THIS MORNING, STILL WAITING ON FIRST VOID. SPOKE WITH DR. RENO AND RECEIVED ORDERS FOR MED, NO TELE. CONTINUE TO MONITOR.
--- NOTE | 2020-11-28 13:00 | NUR ---
TRANSFER PT TRANSFERRING TO ROOM 354. REPORT GIVEN TO LINWOOD MERCADO. PT TRANSFERRED TO NEW ROOM VIA WC WITH AIDE. ALL BELONGINGS SENT WITH PT.
--- NOTE | 2020-11-28 13:10 | NUR ---
Assumed Cared Received report from Aparna ICU-RN. Patient arrived via w/c with 2 bags of personal belongings. Independently transferred self to bed. Denies pain. A/Ox3. Patient settled to room, call light near. Bed in lowest position. Currently on RA. Denies shortness of breath. WCTM.
--- NOTE | 2020-11-28 17:12 | NUR ---
Shift Summary A/Ox4, pleasant and cooperative. Up in room independently with FWW. Had a shower. Denies pain, nausea, vomiting. Refused nystatin swish/swallow d/t bad taste. On RA, no shortness of breath or wheezing. Respiration equal/unlabored. No acute changes since assumption of care. WCTM.
--- NOTE | 2020-11-29 05:49 | NUR ---
SHIFT SUMMARY PT HAD AN UNEVENTFUL NIGHT. REMAINED ON RA WITH O2 SATS IN THE LOW 90'S. PT CONTINUES TO REPORT SOME SOB WITH EXERTION BUT IMPROVING AND PT RECOVERS WELL WITH REST. PT AMBULATING WELL IN THE ROOM INDEPENDENTLY. DENIES ANY PAIN. PT COMPLAINED OF SORES IN MOUTH, BUT REFUSED NYSTATIN SWISH AND SWALLOW. EDUCATED PT ON REASONING FOR NYSTATIN AND THE SORES IN HIS MOUTH BUT PT CONTINUED TO DECLINE. VITAL SIGNS STABLE. PT AFEBRILE. PT HOPEFUL TO D/C HOME TODAY. WILL CONTINUE TO MONITOR.
[2020-11-29] MEDS ORDERED: HYDCHL25 PO (10:00)
[2020-11-29] MEDS ORDERED: SYNTHROID100 MC4 PO (10:01)
[2020-11-29] MEDS ORDERED: METF500 PO (10:02)
[2020-11-29] MEDS ORDERED: LISI20 PO (10:02)
--- NOTE | 2020-11-29 12:12 | NUR ---
PT DISCHARGED THE PT VERBALIZED UNDERSTANDING OF THE DC INSTRUCTIONS, THE PTS PRESCRIPTIONS WERE FAXED TO [facility] THE PT REQUESTED, THE PT WAS REMINDED TO FOLLOW UP WITH HIS PCP ON MONDAY TO ESTABLISH A POST HOSPITAL REVIEW APPOINTMENT, THE PT WAS TRANSFERED VIA WHEELCHAIR ACCOMPANIED BY THE SAW HANDLE ASSEMBLER AND HIS , THE PT APPEARED TO BE BREATHING EASILY ON RA AT THE TIME OF DC
== END 2020-11-29 12:00 | disposition home or self-care (01) | DRG 207 ==
LOC: ER 18:48 → ICUE 20:24 → ICUW 20:24 → ICUE 21:15 → MEDS 11-28 13:09
PROVIDERS: Emergency Medicine; Family Medicine; Internal Medicine; Internal Medicine Critical Care Medicine; ADMIT Internal Medicine
PROC: XW033E5 Introduction of Remdesivir Anti-infective into Peripheral Vein, Percutaneous Approach, New Technology Group 5 (ICD-10-PCS; 2020-11-15)
PROC: 0BH18EZ Insertion of Endotracheal Airway into Trachea, Via Natural or Artificial Opening Endoscopic (ICD-10-PCS; principal; 2020-11-17)
PROC: 5A1955Z Respiratory Ventilation, Greater than 96 Consecutive Hours (ICD-10-PCS; 2020-11-17)
PROC: 02HV33Z Insertion of Infusion Device into Superior Vena Cava, Percutaneous Approach (ICD-10-PCS; 2020-11-17)
PROC: 3E0333Z Introduction of Anti-inflammatory into Peripheral Vein, Percutaneous Approach (ICD-10-PCS; 2020-11-19)
PROC: 5A09357 Assistance with Respiratory Ventilation, Less than 24 Consecutive Hours, Continuous Positive Airway Pressure (ICD-10-PCS; 2020-11-19)
DX: U07.1 COVID-19 (principal); J12.82 Pneumonia due to coronavirus disease 2019; J96.01 Acute respiratory failure with hypoxia; J15.6 Pneumonia due to other Gram-negative bacteria; J95.851 Ventilator associated pneumonia; E87.1 Hypo-osmolality and hyponatremia; Z68.42 Body mass index [BMI] 45.0-49.9, adult; E11.9 Type 2 diabetes mellitus without complications; E87.6 Hypokalemia; D64.9 Anemia, unspecified; I10 Essential (primary) hypertension; E66.01 Morbid (severe) obesity due to excess calories; E03.9 Hypothyroidism, unspecified; M79.7 Fibromyalgia; Z98.42 Cataract extraction status, left eye; Z98.41 Cataract extraction status, right eye; Z87.891 Personal history of nicotine dependence; Z88.8 Allergy status to other drugs, medicaments and biological substances; Z79.899 Other long term (current) drug therapy; E66.9 Obesity, unspecified; E83.39 Other disorders of phosphorus metabolism
CPT/HCPCS: 31500; 31720; 36415; 36569; 36600; 71045; 71260; 80048; 80053; 80069; 82803; 82947; 83036; 83735; 83880; 84100; 84439; 84443; 84484; 85025; 85027; 85379; 85651; 86140; 87070; 87077; 87102; 87186; 87205; 92526; 92610; 93005; 93010; 94002; 94003; 94640; 94660; 94760; 96365; 96375; 97110; 97161; 97166; 97530; 99285-25; A9270; C1751; C1894; C9113; J0360; J1100; J1170; J1265; J1650; J1815; J1940; J2060; J2405; J2704; J3010; J7030; J7040; J7060; J7120; Q9967

== ENCOUNTER 2021-04-06 12:46 | Day surgery (SDC) | payer OTHER ==
[~2021-04-06] VITALS: Ht 167.6 cm; Wt 126.0 kg
[~2021-04-06 12:46] MED LIST changes: +ALKA-SELTZER P1 EA19 PO; +HYDCHL25 PO; +LISI20 PO; +METF500 PO; +SYNTHROID100 MC4 PO
--- NOTE | 2021-04-06 14:30 | NUR ---
04/06/21 1430 Ava Cardenas History, Chart, Medications and Allergies reviewed before start of procedure. MAC CASE WITH DR. TERRY. PREMEDICATED WITH LIDOCAINE 2% GARGLED FOR NUMBING PREPROCEDURE.MONITOR INTACT WITH CONTINUOUS PULSE OXIMETRY AND INTERMITTENT BP.O2 VIA POM INTACT THROUGHOUT SEDATION/PROCEDURE.
--- NOTE | 2021-04-06 16:05 | NUR ---
Patient up to Ambulate independently. Gait steady. Discharge instructions reviewed with patient. Patient verbalizes understanding. Copy given to patient to take home. Patient States Post-Procedure ride home has been arranged. Discharged via wheelchair to private car for ride home. PT TOLERATING PO. DENIES DIZZINESS. REPORTS HR AND BP "ALWAYS RUN A LITTLE HIGH".
== END 2021-04-06 16:05 | disposition home or self-care (01) ==
LOC: ORSCMMR 12:46 → ORSCSDS 14:00 → ORD 14:00 → ORSCMMR 16:05
PROVIDERS: Internal Medicine Gastroenterology
PROC: 0DB58ZX Excision of Esophagus, Via Natural or Artificial Opening Endoscopic, Diagnostic (ICD-10-PCS; principal; 2021-04-06 14:00)
PROC: 0DB98ZX Excision of Duodenum, Via Natural or Artificial Opening Endoscopic, Diagnostic (ICD-10-PCS; principal; 2021-04-06 14:00)
PROC: 0D757ZZ Dilation of Esophagus, Via Natural or Artificial Opening (ICD-10-PCS; principal; 2021-04-06 14:00)
PROC: 0DBE8ZX Excision of Large Intestine, Via Natural or Artificial Opening Endoscopic, Diagnostic (ICD-10-PCS; principal; 2021-04-06 14:00)
PROC: 0DB78ZX Excision of Stomach, Pylorus, Via Natural or Artificial Opening Endoscopic, Diagnostic (ICD-10-PCS; principal; 2021-04-06 14:00)
PROC: 0DBK8ZX Excision of Ascending Colon, Via Natural or Artificial Opening Endoscopic, Diagnostic (ICD-10-PCS; principal; 2021-04-06 14:00)
PROC: 0DBL8ZX Excision of Transverse Colon, Via Natural or Artificial Opening Endoscopic, Diagnostic (ICD-10-PCS; principal; 2021-04-06 14:00)
DX: K52.9 Noninfective gastroenteritis and colitis, unspecified (principal); R13.14 Dysphagia, pharyngoesophageal phase; R11.0 Nausea; R14.0 Abdominal distension (gaseous); K29.80 Duodenitis without bleeding; D12.2 Benign neoplasm of ascending colon; D12.3 Benign neoplasm of transverse colon; I10 Essential (primary) hypertension; K21.9 Gastro-esophageal reflux disease without esophagitis; M79.7 Fibromyalgia; E11.9 Type 2 diabetes mellitus without complications; E03.9 Hypothyroidism, unspecified; E66.01 Morbid (severe) obesity due to excess calories; Z68.41 Body mass index [BMI] 40.0-44.9, adult; Z79.4 Long term (current) use of insulin; F17.210 Nicotine dependence, cigarettes, uncomplicated
CPT/HCPCS: 82947; 88305; 88342; A9270; J2001; J2704; J7120

== ENCOUNTER → 2024-12-23 | Outpatient (CLI) | payer OTHER ==
[2024-12-23 11:10] LABS: BASOPHILS ABSOLUTE AUTO 0.06 K/mm3 (0.00-0.23); BASOPHILS PERCENT AUTO 1 % (0-2); EOSINOPHILS ABSOLUTE AUTO 0.17 K/mm3 (0.00-0.68); EOSINOPHILS PERCENT AUTO 2 % (0-6); Hematocrit 49.3 % (37.0-53.0); Hemoglobin 16.1 g/dL (13.5-17.5); IMMATURE GRAN ABSOLUTE AUTO 0.05 K/mm3 (0.00-0.10); IMMATURE GRAN PERCENT AUTO 1 % (0-1); LYMPHOCYTES ABSOLUTE AUTO 2.48 K/mm3 (0.84-5.20); LYMPHOCYTES PERCENT AUTO 28 % (21-46); MONOCYTES ABSOLUTE AUTO 0.55 K/mm3 (0.16-1.47); MONOCYTES PERCENT AUTO 6 % (4-13); Mean Corpuscular HGB 29.2 pg (26.0-34.0); Mean Corpuscular HGB Conc 32.7 g/dL (31.5-36.5); Mean Corpuscular Volume 89 fL (80-100); Mean Platelet Volume 10.5 fL (9.1-12.4); NEUTROPHILS ABSOLUTE AUTO 5.64 K/mm3 (1.96-9.15); NEUTROPHILS PERCENT AUTO 63 % (41-73); Platelet Count 265 K/mm3 (150-400); RDW Coefficient Variation 13.7 % (11.7-14.2); Red Blood Cell Count 5.52 M/mm3 (4.30-5.90); White Blood Cell Count 8.95 K/mm3 (4.00-11.30)
[2024-12-23 11:40] LABS: Alanine Aminotransfer (ALT/SGP 54 U/L (12-78); Albumin/Globulin Ratio 0.9 (0.8-1.8); Alk Phos 107 U/L (40-126); Anion Gap 10 mmol/L (3-11); Aspartate Aminotrans (AST/SGOT 24 U/L (12-37); Bilirubin, Total 0.5 mg/dL (0.1-1.0); Blood Urea Nitrogen 18 mg/dL (8-24); Bun/Creatinine Ratio 16.8 (12.0-20.0); CHOL/HDL RATIO 4.9; CO2, Blood 30 mmol/L (21-32); Chloride, Blood 99 mmol/L (98-108); Cholesterol 193 mg/dL (50-200); Creatinine, Blood 1.07 mg/dL (0.60-1.20); Globulin, Blood 4.4 g/dL (2.2-4.0); Glomerular Filtration Rate 84 (60-); Glucose, Blood 155 mg/dL (70-99); HDL Cholesterol 39 mg/dL (>39); Low Density Lipoprotein Chol 118 mg/dL (<110); Potassium, Blood 4.2 mmol/L (3.5-5.5); Sodium, Blood 135 mmol/L (136-145); Total Protein, Blood 8.4 g/dL (6.4-8.2); Triglycerides 180 mg/dL (30-160); Very Low Density Lipoprot Chol 36 mg/dL (6-32)
== END | disposition home or self-care (01) ==
LOC: LAB 10:09 → LAB SHORT 10:09
PROVIDERS: Physician Assistant
DX: E11.65 Type 2 diabetes mellitus with hyperglycemia (principal); E29.1 Testicular hypofunction
CPT/HCPCS: 36415; 80053; 80061; 83036; 84403; 85025

== ENCOUNTER → 2025-05-04 | Outpatient (CLI) | payer OTHER ==
[2025-05-05 16:21] LABS: Campylobacter Sp Not Detected (NOT DETECT); E. Coli O157 Not Detected (NOT DETECT); Enteroaggregative E. coli-EAEC Not Detected (NOT DETECT); Enteropathogenic E. coli-EPEC Detected (NOT DETECT); Enterotoxigenic E. coli-ETEC Not Detected (NOT DETECT); Salmonella Sp Not Detected (NOT DETECT); Shiga Toxin-prod E. coli-STEC Not Detected (NOT DETECT); Shigella/Enteroin E. coli-EIEC Not Detected (NOT DETECT); Vibrio Sp Not Detected (NOT DETECT)
[2025-05-06 21:33] LABS: CALPROTECTIN,FECAL 15 ug/g (<=49)
[2025-05-08 21:02] LABS: OVA AND PARASITE,FECAL INTERP Negative (Negative)
== END ==
LOC: LAB SHORT 08:48 → LAB 08:48
PROVIDERS: Internal Medicine Endocrinology, Diabetes & Metabolism
DX: K52.9 Noninfective gastroenteritis and colitis, unspecified (principal)
CPT/HCPCS: 83993; 87177; 87209; 87507